=== PATIENT | male | born 1985 | race African-American/Black ===

== ENCOUNTER 2018-07-06 09:28 | Emergency (ER) | payer BC ==
[2018-07-06] MEDS ORDERED: KETOROLAC TROMETHAMINE INJ/PF 30 MG/1 ML SDV IV ONE (09:49)
[2018-07-06] MEDS ORDERED: ONDANSETRON HCL INJ/PF 4 MG/2 ML SDV IV ONE (09:49)
[2018-07-06] MEDS ORDERED: NORMAL SALINE 1000 ML 1,000 ML IV ONE ×2 (09:49→10:47)
--- NOTE | 2018-07-06 09:49 | ER Document Report ---
ED Medical Screen (RME) - General Chief Complaint: Back Pain Stated Complaint: URINARY ISSUE Time Seen by Provider: 07/06/18 09:44 Primary Care Provider: ELSY CHEW PA-C [Primary Care Provider] - Follow up as needed Notes: Patient is a 32-year-old male with history of kidney stones that presents to the emergency department for chief complaint of flank pain and back pain and painful urination. Patient states that he was seen by his primary care, diagnosed with a UTI, had outpatient testing the stated that he had a kidney stone, he states he had an ultrasound done, he has had fever, was started on Cipro, Flomax, and Toradol, he states the pain is not any better so he decided come to the emergency department. He reports that he was able to pass his previous stones. ROS: Other than noted above, the 12 point review of systems was reviewed with the patient and were negative, all pertinent findings are included in the HPI. PHYSICAL EXAMINATION: Vital signs reviewed. GENERAL: Well-appearing, well-nourished and in no acute distress. HEAD: Atraumatic, normocephalic. EYES: Pupils equal round extraocular movements intact, conjunctiva are normal. ENT: Nares patent NECK: Normal range of motion CV: Heart regular rate and rhythm LUNGS: No respiratory distress Musculoskeletal: Normal range of motion NEUROLOGICAL: Normal speech PSYCH: Normal mood, normal affect. MDM: Patient seen and examined for rapid initial assessment. Vital signs reviewed. A comprehensive ED assessment and evaluation of the patient, analysis of test results and completion of the medical decision making process will be conducted by additional ED providers. *Note is created using voice recognition software and may contain spelling, syntax or grammatical errors. TRAVEL OUTSIDE OF THE [place] IN LAST 30 DAYS: No - Related Data Allergies/Adverse Reactions: No Known Allergies Allergy (Unverified 07/06/18 09:35) Past Medical History - Social History Chew tobacco use (# tins/day): No Frequency of alcohol use: None Drug Abuse: None Renal/ Medical History: Denies: Hx Peritoneal Dialysis Physical Exam - Vital signs Vitals: Temp Pulse Resp BP Pulse Ox 98.5 F 95 18 119/64 95 07/06/18 09:35 07/06/18 09:35 07/06/18 09:35 07/06/18 09:35 07/06/18 09:35 Course - Vital Signs Vital signs: Temp Pulse Resp BP Pulse Ox 98.5 F 95 18 119/64 95 07/06/18 09:35 07/06/18 09:35 07/06/18 09:35 07/06/18 09:35 07/06/18 09:35 Doctor's Discharge - Discharge Referrals: ELSY CHEW PA-C [Primary Care Provider] - Follow up as needed
[2018-07-06] MEDS ORDERED: MORPHINE SULFATE 10 MG/ML INJ IV ONE (10:30)
--- NOTE | 2018-07-06 10:31 | ER Document Report ---
ED GI/ - General Chief Complaint: Back Pain Stated Complaint: URINARY ISSUE Time Seen by Provider: 07/06/18 09:44 Primary Care Provider: [facility] [Provider Group] - Follow up as needed [facility] [Provider Group] - Follow up in 3-5 days HENRY RAJPUT MD [COMMUNITY BASED STAFF] - Follow up in 3-5 days Mode of Arrival: Ambulatory Information source: Patient Notes: Patient presents with a 4-day history of intermittent fevers low back pain and suprapubic tenderness. Patient states that he was seen in urgent care 2 days ago and diagnosed with a UTI. Patient reports having an outpatient ultrasound to evaluate for possible kidney stone. Patient states that when he advised him that he was not any better the encouraged him to come here for recheck. Patient does have a previous history of kidney stones and hypertension. Patient has been taking Cipro and reports having had 6 doses so far. Patient is also taking Flomax and Toradol without improvement of his symptoms. TRAVEL OUTSIDE OF THE [place] IN LAST 30 DAYS: No - HPI Patient complains to provider of: Abdominal pain, Dysuria, Other - Low back pain. No: Vomiting Onset: Other - 4 days Timing/Duration: Worse Quality of pain: Achy, Sharp Pain Level: 4 Location: Low back, Suprapubic Sexual history: Active Associated symptoms: Fever. denies: Diarrhea, Nausea, Urinary hesitancy, Urinary urgency, Vomiting Exacerbated by: Denies Relieved by: Denies Similar symptoms previously: Yes Recently seen / treated by doctor: Yes - Related Data Allergies/Adverse Reactions: No Known Allergies Allergy (Verified 07/06/18 14:08) Past Medical History - General Information source: Patient - Social History Smoking Status: Never Smoker Chew tobacco use (# tins/day): No Frequency of alcohol use: None Drug Abuse: None Occupation: tire repair Lives with: Family Family History: Reviewed & Not Pertinent Patient has suicidal ideation: No Patient has homicidal ideation: No - Past Medical History Cardiac Medical History: Reports: Hx Hypertension Renal/ Medical History: Reports: Hx Kidney Stones. Denies: Hx Peritoneal Dialysis Past Surgical History: Reports: Hx Genitourinary Surgery - vasectomy Review of Systems - Review of Systems Constitutional: Fever, Recent illness - Recent treatment for UTI EENT: No symptoms reported Cardiovascular: No symptoms reported Respiratory: No symptoms reported. denies: Cough, Short of breath Gastrointestinal: Abdominal pain, Nausea. denies: Vomiting Genitourinary: Dysuria. denies: Flank pain Male Genitourinary: No symptoms reported Musculoskeletal: Back pain Skin: No symptoms reported Hematologic/Lymphatic: No symptoms reported Neurological/Psychological: No symptoms reported Physical Exam - Vital signs Vitals: Temp Pulse Resp BP Pulse Ox 98.5 F 95 18 119/64 95 07/06/18 09:35 07/06/18 09:35 07/06/18 09:35 07/06/18 09:35 07/06/18 09:35 - General General appearance: Appears well, Alert In distress: None - HEENT Head: Normocephalic, Atraumatic Eyes: Normal Conjunctiva: Normal Nasal: Normal Mouth/Lips: Normal Mucous membranes: Normal Neck: Normal, Supple. No: Lymphadenopathy - Respiratory Respiratory status: No respiratory distress Chest status: Nontender Breath sounds: Normal. No: Rales, Rhonchi, Stridor, Wheezing Chest palpation: Normal - Cardiovascular Rhythm: Regular Heart sounds: S1 appreciated, S2 appreciated Murmur: No - Abdominal Inspection: Normal Distension: No distension Bowel sounds: Normal Tenderness: Tender - suprapubic Organomegaly: No organomegaly - Rectal Prostate: Tender Notes: PCT Radha as standby - Back Back: Tender - Lower lumbar paraspinal tenderness. No: CVA tenderness - Extremities General upper extremity: Normal inspection, Nontender, Normal ROM General lower extremity: Normal inspection, Nontender, Normal ROM - Neurological Neuro grossly intact: Yes Cognition: Normal Rima Coma Scale Eye Opening: Spontaneous Rima Coma Scale Verbal: Oriented Breaks Coma Scale Motor: Obeys Commands Breaks Coma Scale Total: 15 - Psychological Associated symptoms: Normal affect, Normal mood - Skin Skin Temperature: Warm Skin Moisture: Dry Skin Color: Normal Course - Re-evaluation Re-evalutation: 07/06/18 11:[address] Mcallister regarding patient presentation, agrees with plan to treat for uti and prostatitis with doxycycline. Recommends adding on Flagyl to cover for STDs as well. Patient denies any penile drainage or discharge. Patient without any fever, no concern for sepsis at this time. Good return precautions discussed. Patient advised of abnormal renal function and need to have this test repeated. Patient also encouraged to follow-up with his urologist that he had seen previously in [place]. 07/06/18 11:40 - Vital Signs Vital signs: Temp Pulse Resp BP Pulse Ox 98.3 F 90 18 101/52 L 96 07/06/18 12:47 07/06/18 12:47 07/06/18 12:47 07/06/18 12:47 07/06/18 12:47 - Laboratory Result Diagrams: 07/06/18 10:05 07/06/18 10:05 Laboratory results interpreted by me: 07/06/18 07/06/18 07/06/18 10:05 10:05 10:05 WBC 12.2 H Hgb 13.3 L MCV 78 L Seg Neuts % (Manual) 88 H Lymphocytes % (Manual) 6 L Abs Neuts (Manual) 10.7 H Chloride 94 L BUN 22 H Creatinine 1.44 H Est GFR (Non-Af Amer) 56 L Glucose 113 H Direct Bilirubin 0.5 H Total Protein 8.3 H Urine Protein 30 H Urine Urobilinogen 2.0 H Ur Leukocyte Esterase LARGE H Urine Ascorbic Acid 40 H Labs- Entire Visit 07/06/18 07/06/18 07/06/18 10:05 10:05 10:05 WBC 12.2 H RBC 4.94 Hgb 13.3 L Hct 38.7 MCV 78 L MCH 27.0 MCHC 34.5 RDW 11.6 Plt Count 250 Total Counted 100 Seg Neutrophils % Not Reportable Seg Neuts % (Manual) 88 H Lymphocytes % Not Reportable Lymphocytes % (Manual) 6 L Monocytes % Not Reportable Monocytes % (Manual) 6 Eosinophils % Not Reportable Eosinophils % (Manual) 0 Basophils % Not Reportable Basophils % (Manual) 0 Absolute Neutrophils Not Reportable Abs Neuts (Manual) 10.7 H Absolute Lymphocytes Not Reportable Abs Lymphs (Manual) 0.7 Absolute Monocytes Not Reportable Abs Monocytes (Manual) 0.7 Absolute Eosinophils Not Reportable Absolute Eos (Manual) 0.0 Absolute Basophils Not Reportable Abs Basophils (Manual) 0.0 Platelet Comment ADEQUATE Hypochromasia SLIGHT Microcytosis SLIGHT Sodium 137.6 Potassium 3.9 Chloride 94 L Carbon Dioxide 30 Anion Gap 14 BUN 22 H Creatinine 1.44 H Est GFR ( Amer) > 60 Est GFR (Non-Af Amer) 56 L Glucose 113 H Calcium 9.8 Total Bilirubin 1.0 Direct Bilirubin 0.5 H Neonat Total Bilirubin Not Reportable Neonat Direct Bilirubin Not Reportable Neonat Indirect Bili Not Reportable AST 37 ALT 48 Alkaline Phosphatase 101 Total Protein 8.3 H Albumin 4.3 Urine Color ABRIL Urine Appearance CLOUDY Urine pH 5.0 Ur Specific Ida 1.025 Urine Protein 30 H Urine Glucose (UA) NEGATIVE Urine Ketones NEGATIVE Urine Blood NEGATIVE Urine Nitrite NEGATIVE Urine Bilirubin NEGATIVE Urine Urobilinogen 2.0 H Ur Leukocyte Esterase LARGE H Urine WBC (Auto) >182 Urine RBC (Auto) 17 U Hyaline Cast (Auto) 4 Urine WBC Clumps FEW Urine Mucus (Auto) RARE Urine Ascorbic Acid 40 H - Diagnostic Test Radiology reviewed: Reports reviewed Discharge - Discharge Clinical Impression: Renal function test abnormal UTI (urinary tract infection) Qualifiers: Urinary tract infection type: site unspecified Hematuria presence: with hematuria Qualified Code(s): N39.0 - Urinary tract infection, site not specified Prostatitis Qualifiers: Prostatitis type: acute Qualified Code(s): N41.0 - Acute prostatitis Back pain Qualifiers: Back pain location: low back pain Chronicity: acute Back pain laterality: bilateral Sciatica presence: without sciatica Qualified Code(s): M54.5 - Low back pain Condition: Stable Disposition: HOME, SELF-CARE Instructions: Doxycycline ([facility]), Low Back Pain ([facility]), Metronidazole ([facility]), Prostatitis ([facility]), Rocephin ([facility]), Urinary Tract Infection ([facility]) Additional Instructions: Return immediately for any new or worsening symptoms Followup with your primary care provider, call tomorrow to make a followup appointment Your renal function test was abnormal today. It is important that you follow-up with your primary doctor to have this test repeated this week Cultures are pending, we will call if you need any different treatment Follow-up with urology for further evaluation, call today for an appointment stop taking the toradol Prescriptions: Doxycycline Hyclate 100 mg PO BID #28 capsule Hydrocodone/Acetaminophen [[employer] 5-325 mg Tablet] 1 tab PO Q6 PRN #10 tablet PRN Reason: Forms: Return to Work Referrals: [facility] [Provider Group] - Follow up as needed [facility] [Provider Group] - Follow up in 3-5 days HENRY RAJPUT MD [COMMUNITY BASED STAFF] - Follow up in 3-5 days
[2018-07-06 10:34] LABS: HEMATOCRIT 38.7 % (37.9-51.0); HEMOGLOBIN 13.3 g/dL (13.5-17.0); MEAN CORPUSCULAR HGB CONC 34.5 g/dL (32.0-36.0); MEAN CORPUSCULAR VOLUME 78 fl (80-97); PLATELET COUNT 250 10^3/uL (150-450); RED BLOOD COUNT 4.94 10^6/uL (4.35-5.55); RED CELL DISTRIBUTION WIDTH 11.6 % (11.5-14.0); WHITE BLOOD COUNT 12.2 10^3/uL (4.0-10.5)
[2018-07-06 10:36] LABS: APPEARANCE,URINE CLOUDY; BILIRUBIN,URINE NEGATIVE (NEGATIVE); COLOR,URINE AMBER; GLUCOSE, URINE NEGATIVE (NEGATIVE); KETONES,URINE NEGATIVE (NEGATIVE); LEUKOCYTE ESTERASE,URINE LARGE (NEGATIVE); NITRITE,URINE NEGATIVE (NEGATIVE); PROTEIN,URINE 30 mg/dL (NEGATIVE); URINE SPECIFIC GRAVITY 1.025
[2018-07-06] MEDS ORDERED: CEFTRIAXONE 1 GM/D5W RTU 1 GM/50 ML RTUPB IV ONE (10:47)
[2018-07-06 10:53] LABS: ALANINE AMINOTRANSFERASE 48 U/L (21-72); ALBUMIN 4.3 g/dL (3.5-5.0); ALKALINE PHOSPHATASE 101 U/L (38-126); ANION GAP 14 (5-19); ASPARTATE AMINO TRANSFERASE 37 U/L (17-59); BILIRUBIN,DIRECT 0.5 mg/dL (0.0-0.4); BLOOD UREA NITROGEN 22 mg/dL (7-20); CALCIUM 9.8 mg/dL (8.4-10.2); CARBON DIOXIDE 30 mmol/L (22-30); CHLORIDE 94 mmol/L (98-107); GLUCOSE 113 mg/dL (75-110); POTASSIUM 3.9 mmol/L (3.6-5.0); SODIUM 137.6 mmol/L (137-145); TOTAL PROTEIN 8.3 g/dL (6.3-8.2)
--- NOTE | 2018-07-06 10:53 | RADIOLOGY REPORT (SQ) ---
EXAM DESCRIPTION: CT ABD/PELVIS NO ORAL OR IV COMPLETED DATE/TIME: 07/06/2018 10:41 am REASON FOR STUDY: flank pain, left COMPARISON: None. TECHNIQUE: CT scan of the abdomen and pelvis performed without intravenous or oral contrast. Images reviewed with lung, soft tissue, and bone windows. Reconstructed coronal and sagittal MPR images revi ewed. All images stored on PACS. All CT scanners at this facility use dose modulation, iterative reconstruction, and/or weight based d osing when appropriate to reduce radiation dose to as low as reasonably achievable (ALARA). [facility]: Dose Right [facility]: CareDose [facility]: Dose Right [facility]: Teradose 4D [facility]: Smart [employer] RADIATION DOSE: CT Rad equipment meets quality standard of care and radiation dose reduction techniq ues were employed. CTDIvol: 10.5 mGy. DLP: 633 mGy-cm.mGy. LIMITATIONS: None. FINDINGS: LOWER CHEST: No significant findings. No nodules or infiltrates. NON-CONTRASTED LIVER, SPLEEN, ADRENALS: Evaluation limited by lack of IV contrast. No identified sign ificant masses. PANCREAS: No masses. No peripancreatic inflammatory changes. GALLBLADDER: No identified stones by CT criteria. No inflammatory changes to suggest cholecystitis. RIGHT KIDNEY AND URETER: No suspicious masses. Assessment limited by lack of IV contrast. Tiny nono bstructive calculi. No hydronephrosis or hydroureter. LEFT KIDNEY AND URETER: No suspicious masses. Assessment limited by lack of IV contrast. Tiny nonob structive calculi. No hydronephrosis or hydroureter. AORTA AND RETROPERITONEUM: No aneurysm. No retroperitoneal masses or adenopathy. BOWEL AND PERITONEAL CAVITY: No obvious masses or inflammatory changes. No free fluid. APPENDIX: Normal. PELVIS, BLADDER, AND ABDOMINAL WALL:No abnormal masses. No free fluid. Bladder normal. BONES: No significant findings. OTHER: No other significant finding. IMPRESSION: Nonobstructive bilateral nephrolithiasis without evidence of lower urinary tract calculu s or hydronephrosis. No acute findings to explain flank pain. Normal appendix. COMMENT: Quality ID # [id number]: Final reports with documentation of one or more dose reduction techniques (e.g., Automated exposure control, adjustment of the mA and/or kV according to patient size, use of iterative reconstruction technique) TECHNICAL DOCUMENTATION: JOB ID: [id number]- All Rights Reserved Reading location - IP/workstation name: [email or web address]
[2018-07-06 11:07] LABS: ABSOLUTE LYMPHOCYTES# (MANUAL) 0.7 10^3/uL (0.5-4.7); ABSOLUTE MONOCYTES # (MANUAL) 0.7 10^3/uL (0.1-1.4); ABSOLUTE NEUTROPHILS# (MANUAL) 10.7 10^3/uL (1.7-8.2); BASOPHILS % (MANUAL) 0 % (0-2); EOSINOPHILS % (MANUAL) 0 % (0-6); LYMPHOCYTES % (MANUAL) 6 % (13-45); MONOCYTES % (MANUAL) 6 % (3-13); SEGMENTED NEUTROPHILS % (MAN) 88 % (42-78); TOTAL CELLS COUNTED 100
[2018-07-06 11:08] LABS: HYPOCHROMASIA SLIGHT; PLATELET COMMENT ADEQUATE
[2018-07-06] MEDS ORDERED: DOXYCYCLINE HYCLATE 100 MG TABLET PO ONE (11:13)
[2018-07-06] MEDS ORDERED: METRONIDAZOLE 500 MG TABLET PO ONE (11:13)
[2018-07-06 12:47] VITALS: BP 101/52
== END 2018-07-06 12:48 | disposition home or self-care (01) ==
LOC: ER 09:28
DX: N41.0 Acute prostatitis (principal); N39.0 Urinary tract infection, site not specified; R94.4 Abnormal results of kidney function studies; M54.5 Low back pain; I10 Essential (primary) hypertension; R50.9 Fever, unspecified; R11.0 Nausea; R10.30 Lower abdominal pain, unspecified
CPT/HCPCS: 99284; 96361; 96374; 96375; 36415; 87040; 87086; 85025; 87077; 87088; 80053; 81001; 87186; 74176; J1885; J2270; J2405; J7030; J0696

== ENCOUNTER 2018-07-06 14:02 | Inpatient (IN) | payer BC ==
--- NOTE | 2018-07-06 14:37 | ER Document Report ---
ED General <ADENIKE MONIQUE - Last Filed: 07/06/18 17:05> - General Mode of Arrival: Ambulatory Information source: Patient TRAVEL OUTSIDE OF THE [place] IN LAST 30 DAYS: No - HPI Onset: Other - 4 days Onset/Duration: Worse Quality of pain: Achy Pain Level: 4 Associated symptoms: Fever, Nausea, Vomiting, Sweating. denies: Chest pain, Nonproductive cough, Diarrhea Exacerbated by: Denies Relieved by: Denies Similar symptoms previously: Yes Recently seen / treated by doctor: Yes <NEHA SANTIAGO - Last Filed: 07/06/18 19:47> - General Chief Complaint: Nausea/Vomiting Stated Complaint: VOMITING,SHAKING Time Seen by Provider: 07/06/18 14:15 Notes: Patient was discharged earlier this afternoon after being treated for a UTI. Patient reports that he had been treated on an outpatient basis 2 days ago with Cipro for UTI and had an outpatient ultrasound to evaluate for possible kidney stones. Patient was given Rocephin earlier today and a prescription for doxycycline. Patient states that about an hour after he was discharged he started to have nausea vomiting with fever and shaking. Patient denies any concerns about HIV or any history of IV drug use. Patient does report a history of kidney stone in the past although had a CT scan at his earlier visit today which did not show any ureteral stone or hydronephrosis. Patient did have bilateral small intrarenal stones. (NEHA SANTIAGO) - Related Data Allergies/Adverse Reactions: No Known Allergies Allergy (Verified 07/06/18 14:08) Past Medical History - General Information source: Patient - Social History Smoking Status: Never Smoker Frequency of alcohol use: None Drug Abuse: None Occupation: tire repair Lives with: Family Family History: Reviewed & Not Pertinent - Past Medical History Cardiac Medical History: Reports: Hx Hypertension Renal/ Medical History: Reports: Hx Kidney Stones. Denies: Hx Peritoneal Dialysis Past Surgical History: Reports: Hx Genitourinary Surgery - vasectomy <NEHA SANTIAGO - Last Filed: 07/06/18 19:47> Review of Systems - Review of Systems Constitutional: Fever, Recent illness - Easily treated for UTI EENT: No symptoms reported Cardiovascular: No symptoms reported. denies: Chest pain Respiratory: Cough - Just started when the nausea started Gastrointestinal: Abdominal pain - Suprapubic, Nausea, Vomiting Genitourinary: Dysuria, Pain - Suprapubic. denies: Flank pain Male Genitourinary: No symptoms reported. denies: Erectile dysfunction, Penile discharge Musculoskeletal: Back pain Skin: No symptoms reported Hematologic/Lymphatic: No symptoms reported Neurological/Psychological: Headaches <NEHA SANTIAGO - Last Filed: 07/06/18 19:47> Physical Exam - General General appearance: Appears well, Alert In distress: Mild - HEENT Head: Normocephalic, Atraumatic Conjunctiva: Injected. No: Purulent discharge Pupils: PERRL Nasal: Normal Mouth/Lips: Normal Mucous membranes: Normal Neck: Normal, Supple. No: Lymphadenopathy - Respiratory Respiratory status: No respiratory distress Chest status: Nontender Breath sounds: Normal. No: Rales, Rhonchi, Stridor, Wheezing Chest palpation: Normal - Cardiovascular Rhythm: Tachycardia Heart sounds: S1 appreciated, S2 appreciated Murmur: No - Abdominal Inspection: Normal Distension: No distension Bowel sounds: Normal Tenderness: Tender - suprapubic Organomegaly: No organomegaly - Back Back: Tender - Lower lumbar paraspinal tenderness. No: CVA tenderness, Vertebra tenderness - Extremities General upper extremity: Normal inspection, Normal ROM General lower extremity: Normal inspection, Normal ROM - Neurological Neuro grossly intact: Yes Cognition: Normal [place] Coma Scale Eye Opening: Spontaneous [place] Coma Scale Verbal: Oriented Rima Coma Scale Motor: Obeys Commands [place] Coma Scale Total: 15 - Psychological Associated symptoms: Normal affect, Normal mood - Skin Skin Temperature: Warm Skin Moisture: Dry Skin Color: Normal <NEHA SANTIAGO - Last Filed: 07/06/18 19:47> - Vital signs Vitals: Temp Pulse Resp BP Pulse Ox 103.2 F H 130 H 28 H 151/75 H 94 07/06/18 14:08 07/06/18 14:08 07/06/18 14:08 07/06/18 14:08 07/06/18 14:08 Course - Laboratory Result Diagrams: 07/06/18 14:58 07/06/18 16:11 <ADENIKE MONIQUE - Last Filed: 07/06/18 17:05> - Laboratory Result Diagrams: 07/06/18 14:58 07/06/18 16:11 - Diagnostic Test Radiology reviewed: Reports reviewed - Reviewed from patient's previous ER visit <NEHA SANTIAGO - Last Filed: 07/06/18 19:47> - Re-evaluation Re-evalutation: 07/06/18 17:05 Patient seen and evaluated by myself. He is mildly diaphoretic, tachycardic and febrile during my exam. Patient has no midline spinal tenderness or erythema over his back. He does have complaint of back pain and suprapubic pain as well as dysuria. These symptoms are consistent with his acute UTI. He received Rocephin earlier in the day. Patient has received a total of 3 L of IV fluids without improvement of his acute kidney injury. He will be admitted to the hospital for further management. He is meeting sepsis criteria cultures have been obtained. (ADENIKE MONIQUE) 07/06/18 14:[address] Adenike Monique regarding patient presentation. Discussed patient's initial presentation to the ER as well as current exam findings. Recommends given additional liter of IV fluids as well as Phenergan IV to help with nausea. Agrees with plan for septic evaluation. 07/06/18 16:57 Dr. Monique to bedside for evaluation. Recommends consultation with hospitalist for admission at this time. Does not recommend any change in antibiotic regimen at this time as patient had been given a dose of Rocephin IV, doxycycline as well as Flagyl at the previous ER visit. 07/06/18 17:44 Consulted with Kiana NOE regarding need for admission, recommends consultation with Dr. Ya. Call placed to Dr. Ya for admission. 07/06/18 17:54 Dr Bonner agrees to admit pt at this time 07/06/18 19:47 (NEHA SANTIAGO) - Vital Signs Vital signs: Temp Pulse Resp BP Pulse Ox 102.5 F H 130 H 17 118/66 97 07/06/18 15:30 07/06/18 14:08 07/06/18 19:01 07/06/18 19:01 07/06/18 19:01 - Laboratory Laboratory results interpreted by me: 07/06/18 07/06/18 07/06/18 14:44 14:58 16:11 Hgb 12.7 L Hct 37.1 L MCV 79 L Seg Neutrophils % 87.9 H Lymphocytes % 5.5 L Absolute Neutrophils 8.3 H Sodium 136.3 L BUN 23 H Creatinine 1.44 H Est GFR (Non-Af Amer) 56 L Glucose 116 H Direct Bilirubin 0.5 H Urine Protein 30 H Urine Blood SMALL H Ur Leukocyte Esterase LARGE H Urine Ascorbic Acid 40 H 07/06/18 07/06/18 07/06/18 14:44 14:58 16:11 Hgb 12.7 L Hct 37.1 L MCV 79 L Seg Neutrophils % 87.9 H Lymphocytes % 5.5 L Absolute Neutrophils 8.3 H Sodium 136.3 L BUN 23 H Creatinine 1.44 H Est GFR (Non-Af Amer) 56 L Glucose 116 H Direct Bilirubin 0.5 H Urine Protein 30 H Urine Blood SMALL H Ur Leukocyte Esterase LARGE H Urine Ascorbic Acid 40 H 07/06/18 19:47 Labs- Entire Visit 07/06/18 07/06/18 07/06/18 14:44 14:44 14:58 WBC 9.4 RBC 4.69 Hgb 12.7 L Hct 37.1 L MCV 79 L MCH 27.2 MCHC 34.3 RDW 11.6 Plt Count 232 Seg Neutrophils % 87.9 H Lymphocytes % 5.5 L Monocytes % 6.3 Eosinophils % 0.1 Basophils % 0.2 Absolute Neutrophils 8.3 H Absolute Lymphocytes 0.5 Absolute Monocytes 0.6 Absolute Eosinophils 0.0 Absolute Basophils 0.0 PT INR VBG pH VBG pCO2 VBG HCO3 VBG Base Excess Sodium Potassium Chloride Carbon Dioxide Anion Gap BUN Creatinine Est GFR ( Amer) Est GFR (Non-Af Amer) Glucose Lactic Acid Calcium Total Bilirubin Direct Bilirubin Neonat Total Bilirubin Neonat Direct Bilirubin Neonat Indirect Bili AST ALT Alkaline Phosphatase Total Protein Albumin Urine Color YELLOW Urine Appearance CLOUDY Urine pH 5.0 Ur Specific [place] 1.021 Urine Protein 30 H Urine Glucose (UA) NEGATIVE Urine Ketones NEGATIVE Urine Blood SMALL H Urine Nitrite NEGATIVE Urine Bilirubin NEGATIVE Urine Urobilinogen NEGATIVE Ur Leukocyte Esterase LARGE H Urine WBC (Auto) >182 Urine RBC (Auto) 17 Urine Bacteria (Auto) TRACE Urine WBC Clumps FEW U Non-Squamous Epis Auto 1 Urine Mucus (Auto) RARE Urine Ascorbic Acid 40 H Influenza A (Rapid) NEGATIVE Influenza B (Rapid) NEGATIVE 07/06/18 07/06/18 07/06/18 14:58 14:58 14:58 WBC RBC Hgb Hct MCV MCH MCHC RDW Plt Count Seg Neutrophils % Lymphocytes % Monocytes % Eosinophils % Basophils % Absolute Neutrophils Absolute Lymphocytes Absolute Monocytes Absolute Eosinophils Absolute Basophils PT 14.8 INR 1.10 VBG pH VBG pCO2 VBG HCO3 VBG Base Excess Sodium Cancelled Potassium Cancelled Chloride Cancelled Carbon Dioxide Cancelled Anion Gap Cancelled BUN Cancelled Creatinine Cancelled Est GFR ( Amer) Cancelled Est GFR (Non-Af Amer) Cancelled Glucose Cancelled Lactic Acid 1.6 Calcium Cancelled Total Bilirubin Cancelled Direct Bilirubin Cancelled Neonat Total Bilirubin Cancelled Neonat Direct Bilirubin Cancelled Neonat Indirect Bili Cancelled AST Cancelled ALT Cancelled Alkaline Phosphatase Cancelled Total Protein Cancelled Albumin Cancelled Urine Color Urine Appearance Urine pH Ur Specific [place] Urine Protein Urine Glucose (UA) Urine Ketones Urine Blood Urine Nitrite Urine Bilirubin Urine Urobilinogen Ur Leukocyte Esterase Urine WBC (Auto) Urine RBC (Auto) Urine Bacteria (Auto) Urine WBC Clumps U Non-Squamous Epis Auto Urine Mucus (Auto) Urine Ascorbic Acid Influenza A (Rapid) Influenza B (Rapid) 07/06/18 07/06/18 07/06/18 14:58 16:11 16:11 WBC RBC Hgb Hct MCV MCH MCHC RDW Plt Count Seg Neutrophils % Lymphocytes % Monocytes % Eosinophils % Basophils % Absolute Neutrophils Absolute Lymphocytes Absolute Monocytes Absolute Eosinophils Absolute Basophils PT INR VBG pH Cancelled 7.36 VBG pCO2 Cancelled 53.5 VBG HCO3 Cancelled 29.2 VBG Base Excess Cancelled 2.6 Sodium 136.3 L Potassium 4.0 Chloride 98 Carbon Dioxide 24 Anion Gap 14 BUN 23 H Creatinine 1.44 H Est GFR ( Amer) > 60 Est GFR (Non-Af Amer) 56 L Glucose 116 H Lactic Acid Calcium 9.0 Total Bilirubin 0.7 Direct Bilirubin 0.5 H Neonat Total Bilirubin Not Reportable Neonat Direct Bilirubin Not Reportable Neonat Indirect Bili Not Reportable AST 37 ALT 44 Alkaline Phosphatase 95 Total Protein 7.2 Albumin 3.7 Urine Color Urine Appearance Urine pH Ur Specific [place] Urine Protein Urine Glucose (UA) Urine Ketones Urine Blood Urine Nitrite Urine Bilirubin Urine Urobilinogen Ur Leukocyte Esterase Urine WBC (Auto) Urine RBC (Auto) Urine Bacteria (Auto) Urine WBC Clumps U Non-Squamous Epis Auto Urine Mucus (Auto) Urine Ascorbic Acid Influenza A (Rapid) Influenza B (Rapid) Reviewed from patient's previous ER visit (NEHA SANTIAGO) Discharge <ADENIKE MONIQUE Antwan - Last Filed: 07/06/18 17:05> - Discharge Admitting Provider: Hospitalist Unit Admitted: Medical Floor <NEHA SANTIAGO - Last Filed: 07/06/18 19:47> - Discharge Clinical Impression: Acute kidney injury, Complicated UTI (urinary tract infection) Sepsis Qualifiers: Sepsis type: sepsis due to unspecified organism Qualified Code(s): A41.9 - Sepsis, unspecified organism Back pain Qualifiers: Back pain location: low back pain Chronicity: acute Back pain laterality: bilateral Sciatica presence: without sciatica Qualified Code(s): M54.5 - Low back pain Condition: Fair Disposition: ADMITTED INPATIENT
[2018-07-06] MEDS ORDERED: RINGERS SOLUTION,LACTATED 1,000 ML IV ONE (14:46)
[2018-07-06] MEDS ORDERED: PROMETHAZINE HCL INJ 25 MG/1 ML VIAL IV ONE (14:50)
[2018-07-06] MEDS ORDERED: ACETAMINOPHEN 325 MG TABLET PO ONE (14:50)
[2018-07-06 15:11] LABS: APPEARANCE,URINE CLOUDY; BILIRUBIN,URINE NEGATIVE (NEGATIVE); COLOR,URINE YELLOW; GLUCOSE, URINE NEGATIVE (NEGATIVE); KETONES,URINE NEGATIVE (NEGATIVE); LEUKOCYTE ESTERASE,URINE LARGE (NEGATIVE); NITRITE,URINE NEGATIVE (NEGATIVE); PROTEIN,URINE 30 mg/dL (NEGATIVE); URINE SPECIFIC GRAVITY 1.021; UROBILINOGEN,URINE NEGATIVE mg/dL (<2.0)
[2018-07-06 15:14] LABS: A TYPE INFLUENZA AG NEGATIVE (NEGATIVE); B INFLUENZA AG NEGATIVE (NEGATIVE)
[2018-07-06 15:46] LABS: ABSOLUTE LYMPHOCYTES (AUTO) 0.5 10^3/uL (0.5-4.7); ABSOLUTE MONOCYTES (AUTO) 0.6 10^3/uL (0.1-1.4); ABSOLUTE NEUT (AUTO) 8.3 10^3/uL (1.7-8.2); BASOPHILS % (AUTO) 0.2 % (0-2); EOSINOPHILS % (AUTO) 0.1 % (0-6); HEMATOCRIT 37.1 % (37.9-51.0); HEMOGLOBIN 12.7 g/dL (13.5-17.0); LYMPHOCYTES % (AUTO) 5.5 % (13-45); MEAN CORPUSCULAR HEMOGLOBIN 27.2 pg (27.0-33.4); MEAN CORPUSCULAR HGB CONC 34.3 g/dL (32.0-36.0); MEAN CORPUSCULAR VOLUME 79 fl (80-97); MONOCYTES % (AUTO) 6.3 % (3-13); PLATELET COUNT 232 10^3/uL (150-450); RED BLOOD COUNT 4.69 10^6/uL (4.35-5.55); RED CELL DISTRIBUTION WIDTH 11.6 % (11.5-14.0); SEGMENTED NEUTROPHILS % (AUTO) 87.9 % (42-78); TOTAL CELLS COUNTED % (AUTO) 100 %; WHITE BLOOD COUNT 9.4 10^3/uL (4.0-10.5)
[2018-07-06 15:47] LABS: PROTHROMBIN TIME 14.8 SEC (11.4-15.4)
--- NOTE | 2018-07-06 15:57 | RADIOLOGY REPORT (SQ) ---
EXAM DESCRIPTION: CHEST 2 VIEWS COMPLETED DATE/TIME: 07/06/2018 3:51 pm REASON FOR STUDY: cough COMPARISON: None. EXAM PARAMETERS: NUMBER OF VIEWS: two views TECHNIQUE: Digital Frontal and Lateral radiographic views of the chest acquired. RADIATION DOSE: NA LIMITATIONS: none FINDINGS: LUNGS AND PLEURA: No opacities, masses or pneumothorax. No pleural effusion. MEDIASTINUM AND HILAR STRUCTURES: No masses or contour abnormalities. HEART AND VASCULAR STRUCTURES: Heart normal size. No evidence for failure. BONES: No acute findings. HARDWARE: None in the chest. OTHER: No other significant finding. IMPRESSION: NO ACUTE RADIOGRAPHIC FINDING IN THE CHEST. TECHNICAL DOCUMENTATION: JOB ID: [id number] [employer]- All Rights Reserved Reading location - IP/workstation name: [email or web address]
[2018-07-06 16:29] LABS: VENOUS BLOOD BASE EXCESS 2.6 mmol/L; VENOUS BLOOD HCO3 29.2 mmol/L (20-32); VENOUS BLOOD PCO2 53.5 mmHg (35-63); VENOUS BLOOD PH 7.36 (7.30-7.42)
[2018-07-06 16:50] LABS: ALANINE AMINOTRANSFERASE 44 U/L (21-72); ALBUMIN 3.7 g/dL (3.5-5.0); ALKALINE PHOSPHATASE 95 U/L (38-126); ANION GAP 14 (5-19); ASPARTATE AMINO TRANSFERASE 37 U/L (17-59); BILIRUBIN,DIRECT 0.5 mg/dL (0.0-0.4); BILIRUBIN,TOTAL 0.7 mg/dL (0.2-1.3); BLOOD UREA NITROGEN 23 mg/dL (7-20); CARBON DIOXIDE 24 mmol/L (22-30); CHLORIDE 98 mmol/L (98-107); GLUCOSE 116 mg/dL (75-110); SODIUM 136.3 mmol/L (137-145); TOTAL PROTEIN 7.2 g/dL (6.3-8.2)
[2018-07-06] MEDS ORDERED: KETOROLAC TROMETHAMINE INJ/PF 30 MG/1 ML SDV IV ONE (17:05)
[2018-07-06] MEDS ORDERED: MORPHINE SULFATE 10 MG/ML INJ IV ONE (17:22)
--- NOTE | 2018-07-06 18:13 | PDOC H&P ---
History of Present Illness Admission Date/PCP: HENRY RAJPUT MD History of Present Illness: GILBERT WESTBROOK is a 32 year old black male patient with no significant medical history except for hypertension presented with chief complaint of fever and back pain. Initially the patient visited his primary care physician office where he was diagnosed with UTI and he was given Cipro and pain medication to no avail. This is his second visit to [facility] ER. She did report this dysuria and intermittent fever. His T-max is 103.2. His blood work shows mild leukocytosis and acute kidney injury with creatinine of 1.4. CT scan of the abdomen and pelvis without contrast reported as nonobstructive bilateral nephrolithiasis without evidence of lower urinary tract calculus or hydronephrosis. His urinalysis is compatible with UTI evidenced by large leukocyte esterase and pyuria. Past Medical History Cardiac Medical History: Reports: Hypertension Social History Smoking Status: Never Smoker Frequency of Alcohol Use: None Hx Recreational Drug Use: No Hx Prescription Drug Abuse: No - Advance Directive Resuscitation Status: Full Code Family History Parental Family History Reviewed: Yes Children Family History Reviewed: Yes Sibling(s) Family History Reviewed.: Yes Medication/Allergy Home Medications: Ciprofloxacin HCl [Cipro] 500 mg PO BID 07/06/18 Doxycycline Hyclate 100 mg PO BID #28 capsule 07/06/18 Hydrocodone/Acetaminophen [[place] 5-325 mg Tablet] 1 tab PO Q6 PRN #10 tablet 07/06/18 Ketorolac Tromethamine [Toradol 10 mg Tablet] 10 mg PO Q6HP PRN 07/06/18 Tamsulosin HCl [Flomax 0.4 mg Cap.sr] 0.4 mg PO Q6H 07/06/18 Allergies/Adverse Reactions: No Known Allergies Allergy (Verified 07/06/18 14:08) Review of Systems Constitutional: ABSENT: chills, fever(s), headache(s), weight gain, weight loss Eyes: ABSENT: visual disturbances Ears: ABSENT: hearing changes Cardiovascular: ABSENT: chest pain, dyspnea on exertion, edema, orthropnea, palpitations Respiratory: ABSENT: cough, hemoptysis Gastrointestinal: ABSENT: abdominal pain, constipation, diarrhea, hematemesis, hematochezia, nausea, vomiting Genitourinary: PRESENT: dysuria Musculoskeletal: PRESENT: back pain Integumentary: ABSENT: rash, wounds Neurological: ABSENT: abnormal gait, abnormal speech, confusion, dizziness, focal weakness, syncope Psychiatric: ABSENT: anxiety, depression, homidical ideation, suicidal ideation Endocrine: ABSENT: cold intolerance, heat intolerance, polydipsia, polyuria Hematologic/Lymphatic: ABSENT: easy bleeding, easy bruising Physical Exam Vital Signs: Temp Pulse Resp BP Pulse Ox 103.2 F H 130 H 22 H 106/64 96 07/06/18 14:08 07/06/18 14:08 07/06/18 16:31 07/06/18 16:31 07/06/18 16:31 Intake & Output 07/05/18 07/06/18 07/07/18 06:59 06:59 06:59 Intake Total 2000 Output Total 120 Balance 1880 Weight 103 kg General appearance: PRESENT: no acute distress, well-developed, well-nourished Head exam: PRESENT: atraumatic, normocephalic Eye exam: PRESENT: conjunctiva pink, EOMI, PERRLA. ABSENT: scleral icterus Ear exam: PRESENT: normal external ear exam Mouth exam: PRESENT: moist, tongue midline Neck exam: ABSENT: carotid bruit, JVD, lymphadenopathy, thyromegaly Respiratory exam: PRESENT: clear to auscultation brenda. ABSENT: rales, rhonchi, wheezes Cardiovascular exam: PRESENT: RRR. ABSENT: diastolic murmur, rubs, systolic murmur Pulses: PRESENT: normal dorsalis pedis pul Vascular exam: PRESENT: normal capillary refill GI/Abdominal exam: PRESENT: normal bowel sounds, soft. ABSENT: distended, guarding, mass, organolmegaly, rebound, tenderness Rectal exam: PRESENT: deferred Gentrourinary exam: PRESENT: other - Suprapubic pain and tenderness Extremities exam: PRESENT: full ROM. ABSENT: calf tenderness, clubbing, pedal edema Neurological exam: PRESENT: alert, awake, oriented to person, oriented to place, oriented to time, oriented to situation, CN II-XII grossly intact. ABSENT: motor sensory deficit Psychiatric exam: PRESENT: appropriate affect, normal mood. ABSENT: homicidal ideation, suicidal ideation Skin exam: PRESENT: dry, intact, warm. ABSENT: cyanosis, rash Results Laboratory Results: 07/06/18 14:58 07/06/18 16:11 07/06/18 07/06/18 07/06/18 14:44 14:58 14:58 WBC 9.4 RBC 4.69 Hgb 12.7 L Hct 37.1 L MCV 79 L MCH 27.2 MCHC 34.3 RDW 11.6 Plt Count 232 Seg Neutrophils % 87.9 H Lymphocytes % 5.5 L Monocytes % 6.3 Eosinophils % 0.1 Basophils % 0.2 Absolute Neutrophils 8.3 H Absolute Lymphocytes 0.5 Absolute Monocytes 0.6 Absolute Eosinophils 0.0 Absolute Basophils 0.0 VBG pH VBG pCO2 VBG HCO3 VBG Base Excess Sodium Cancelled Potassium Cancelled Chloride Cancelled Carbon Dioxide Cancelled Anion Gap Cancelled BUN Cancelled Creatinine Cancelled Est GFR ( Amer) Cancelled Est GFR (Non-Af Amer) Cancelled Glucose Cancelled Lactic Acid Calcium Cancelled Total Bilirubin Cancelled AST Cancelled ALT Cancelled Alkaline Phosphatase Cancelled Total Protein Cancelled Albumin Cancelled Urine Color YELLOW Urine Appearance CLOUDY Urine pH 5.0 Ur Specific [place] 1.021 Urine Protein 30 H Urine Glucose (UA) NEGATIVE Urine Ketones NEGATIVE Urine Blood SMALL H Urine Nitrite NEGATIVE Ur Leukocyte Esterase LARGE H Urine WBC (Auto) >182 Urine RBC (Auto) 17 07/06/18 07/06/18 07/06/18 14:58 14:58 16:11 WBC RBC Hgb Hct MCV MCH MCHC RDW Plt Count Seg Neutrophils % Lymphocytes % Monocytes % Eosinophils % Basophils % Absolute Neutrophils Absolute Lymphocytes Absolute Monocytes Absolute Eosinophils Absolute Basophils VBG pH Cancelled VBG pCO2 Cancelled VBG HCO3 Cancelled VBG Base Excess Cancelled Sodium 136.3 L Potassium 4.0 Chloride 98 Carbon Dioxide 24 Anion Gap 14 BUN 23 H Creatinine 1.44 H Est GFR ( Amer) > 60 Est GFR (Non-Af Amer) 56 L Glucose 116 H Lactic Acid 1.6 Calcium 9.0 Total Bilirubin 0.7 AST 37 ALT 44 Alkaline Phosphatase 95 Total Protein 7.2 Albumin 3.7 Urine Color Urine Appearance Urine pH Ur Specific [place] Urine Protein Urine Glucose (UA) Urine Ketones Urine Blood Urine Nitrite Ur Leukocyte Esterase Urine WBC (Auto) Urine RBC (Auto) 07/06/18 16:11 WBC RBC Hgb Hct MCV MCH MCHC RDW Plt Count Seg Neutrophils % Lymphocytes % Monocytes % Eosinophils % Basophils % Absolute Neutrophils Absolute Lymphocytes Absolute Monocytes Absolute Eosinophils Absolute Basophils VBG pH 7.36 VBG pCO2 53.5 VBG HCO3 29.2 VBG Base Excess 2.6 Sodium Potassium Chloride Carbon Dioxide Anion Gap BUN Creatinine Est GFR ( Amer) Est GFR (Non-Af Amer) Glucose Lactic Acid Calcium Total Bilirubin AST ALT Alkaline Phosphatase Total Protein Albumin Urine Color Urine Appearance Urine pH Ur Specific [place] Urine Protein Urine Glucose (UA) Urine Ketones Urine Blood Urine Nitrite Ur Leukocyte Esterase Urine WBC (Auto) Urine RBC (Auto) Impressions: Chest X-Ray 07/06/18 14:35 IMPRESSION: NO ACUTE RADIOGRAPHIC FINDING IN THE CHEST. Assessment and Plan - Diagnosis (1) Complicated UTI (urinary tract infection) Is this a current diagnosis for this admission?: Yes Plan: Failed outpatient antibiotic treatment. Patient has mild leukocytosis and fever. I will start him on cefepime (2) Sepsis Is this a current diagnosis for this admission?: Yes Plan: Urinary tract origin. Patient has leukocytosis, fever and hypotension. (3) Acute kidney injury Is this a current diagnosis for this admission?: Yes Plan: Probably due to dehydration. I will cautiously hydrate him. (4) Hypertension Qualifiers: Hypertension type: essential hypertension Qualified Code(s): I10 - Essential (primary) hypertension Is this a current diagnosis for this admission?: Yes Plan: Continue home medication. - Inpatient Certification Medical Necessity: Need Close Monitoring Due to Risk of Patient Decompensation, Need For IV Fluids, Need for IV Antibiotics Post Hospital Care: Other - Failed outpatient antibiotic treatment.
[2018-07-06] MEDS ORDERED: CEFEPIME 2 GM/D5W RTU 2 GM/50 ML RTUPB IV ONE (18:30)
[2018-07-06] MEDS: ENOXAPARIN SODIUM INJ 40 MG/0.4 ML DISP.SYRIN SUBCUT SCH (18:57)
[2018-07-06] MEDS ORDERED: ACETAMINOPHEN 325 MG TABLET ONE (20:51)
[2018-07-06] MEDS: NORMAL SALINE 1000 ML 1,000 ML IV PRN (21:01)
--- NOTE | 2018-07-06 21:27 | EKG REPORT ---
SEVERITY:- OTHERWISE NORMAL ECG - SINUS TACHYCARDIA BORDERLINE LEFT AXIS DEVIATION : Confirmed by: Jsutine Feng MD 06-Jul-2018 21:26:20
[2018-07-06] MEDS: OXYCODONE-ACETAMINOPHEN 5-325 MG TABLET PO PRN (22:38)
[2018-07-07] MEDS: NORMAL SALINE 1000 ML 1,000 ML IV PRN ×3 (03:58→20:02)
[2018-07-07] MEDS ORDERED: KETOROLAC TROMETHAMINE INJ/PF 30 MG/1 ML SDV ONE (04:26)
[2018-07-07] MEDS ORDERED: KETOROLAC TROMETHAMINE INJ/PF 30 MG/1 ML SDV IV PRN (04:28)
[2018-07-07] MEDS ORDERED: KETOROLAC TROMETHAMINE INJ/PF 30 MG/1 ML SDV IV ONE (04:40)
[2018-07-07] MEDS: OXYCODONE-ACETAMINOPHEN 5-325 MG TABLET PO PRN ×4 (04:43→20:00)
[2018-07-07] MEDS: CEFEPIME 2 GM/D5W RTU 2 GM/50 ML RTUPB IV SCH ×2 (05:16→17:44)
[2018-07-07 07:39] LABS: ABSOLUTE LYMPHOCYTES (AUTO) 1.1 10^3/uL (0.5-4.7); ABSOLUTE MONOCYTES (AUTO) 0.6 10^3/uL (0.1-1.4); ABSOLUTE NEUT (AUTO) 5.7 10^3/uL (1.7-8.2); BASOPHILS % (AUTO) 0.3 % (0-2); EOSINOPHILS % (AUTO) 0.3 % (0-6); HEMATOCRIT 33.5 % (37.9-51.0); HEMOGLOBIN 11.4 g/dL (13.5-17.0); MEAN CORPUSCULAR HEMOGLOBIN 27.1 pg (27.0-33.4); MEAN CORPUSCULAR VOLUME 80 fl (80-97); MONOCYTES % (AUTO) 8.4 % (3-13); PLATELET COUNT 232 10^3/uL (150-450); RED BLOOD COUNT 4.21 10^6/uL (4.35-5.55); RED CELL DISTRIBUTION WIDTH 11.9 % (11.5-14.0); TOTAL CELLS COUNTED % (AUTO) 100 %; WHITE BLOOD COUNT 7.5 10^3/uL (4.0-10.5)
[2018-07-07 07:58] LABS: ANION GAP 11 (5-19); BLOOD UREA NITROGEN 17 mg/dL (7-20); CALCIUM 8.5 mg/dL (8.4-10.2); CARBON DIOXIDE 25 mmol/L (22-30); CHLORIDE 99 mmol/L (98-107); GLUCOSE 114 mg/dL (75-110); POTASSIUM 3.9 mmol/L (3.6-5.0); SODIUM 134.6 mmol/L (137-145)
[2018-07-07] MEDS ORDERED: (PENDING PHARMACY ID) (Lisinopril/Hydrochlorothiazide [Lisinopril-Hctz 20-25 Mg Tab] 1 EAC PO SCH (10:00)
[2018-07-07] MEDS: ENOXAPARIN SODIUM INJ 40 MG/0.4 ML DISP.SYRIN SUBCUT SCH (10:15)
[2018-07-07] MEDS: HYDROCHLOROTHIAZIDE 25 MG TABLET PO SCH (10:17)
[2018-07-07] MEDS: TAMSULOSIN HCL 0.4 MG CAP.SR.24H PO SCH (10:17)
[2018-07-07] MEDS: LISINOPRIL 10 MG TABLET PO SCH (10:18)
--- NOTE | 2018-07-07 18:32 | PDOC PROGRESS REPORT ---
Addendum entered and electronically signed by RUBEN LEMONS NP-C 07/07/18 18:33: Provider Note Provider Note: Subjective: Patient was seen on morning rounds with family members present. He was found resting in bed comfortably on room air. He reports continued bilateral back/flank pain that worsens with sudden movements. Positive CVA tenderness on palpation. He also reports mild suprapubic discomfort and urinary urgency. He denies chest pain, palpitations, dyspnea, nausea, vomiting, diarrhea. He has no new questions or concerns. No concerns per nursing. Original Note: Subjective Progress Note for:: 07/07/18 Reason For Visit: SEPSIS,COMPLICATED UTI,FAILED OUTPATIENT ANTI Physical Exam Vital Signs: Temp Pulse Resp BP Pulse Ox 100.3 F 93 16 128/89 H 96 07/07/18 15:00 07/07/18 15:00 07/07/18 15:00 07/07/18 15:00 07/07/18 15:00 Intake & Output 07/06/18 07/07/18 07/08/18 06:59 06:59 06:59 Intake Total 3000 2250 Output Total 970 10 Balance 2030 2240 Weight 100.4 kg General appearance: PRESENT: no acute distress, well-developed, well-nourished Head exam: PRESENT: atraumatic, normocephalic Eye exam: PRESENT: conjunctiva pink, EOMI, PERRLA. ABSENT: scleral icterus Ear exam: PRESENT: normal external ear exam Mouth exam: PRESENT: moist, tongue midline Neck exam: ABSENT: carotid bruit, JVD, lymphadenopathy, thyromegaly Respiratory exam: PRESENT: clear to auscultation brenda. ABSENT: rales, rhonchi, wheezes Cardiovascular exam: PRESENT: RRR. ABSENT: diastolic murmur, rubs, systolic murmur Pulses: PRESENT: normal dorsalis pedis pul Vascular exam: PRESENT: normal capillary refill GI/Abdominal exam: PRESENT: normal bowel sounds, soft, tenderness - suprapubic; bilateral CVA. ABSENT: distended, guarding, mass, organolmegaly, rebound Rectal exam: PRESENT: deferred Extremities exam: PRESENT: full ROM. ABSENT: calf tenderness, clubbing, pedal edema Neurological exam: PRESENT: alert, awake, oriented to person, oriented to place, oriented to time, oriented to situation, CN II-XII grossly intact. ABSENT: motor sensory deficit Psychiatric exam: PRESENT: appropriate affect, normal mood. ABSENT: homicidal ideation, suicidal ideation Skin exam: PRESENT: dry, intact, warm. ABSENT: cyanosis, rash Results Laboratory Results: 07/07/18 06:20 07/07/18 06:20 07/07/18 07/07/18 06:20 06:20 WBC 7.5 RBC 4.21 L Hgb 11.4 L Hct 33.5 L MCV 80 MCH 27.1 MCHC 34.0 RDW 11.9 Plt Count 232 Seg Neutrophils % 76.0 Lymphocytes % 15.0 Monocytes % 8.4 Eosinophils % 0.3 Basophils % 0.3 Absolute Neutrophils 5.7 Absolute Lymphocytes 1.1 Absolute Monocytes 0.6 Absolute Eosinophils 0.0 Absolute Basophils 0.0 Sodium 134.6 L Potassium 3.9 Chloride 99 Carbon Dioxide 25 Anion Gap 11 BUN 17 Creatinine 1.19 Est GFR ( Amer) > 60 Est GFR (Non-Af Amer) > 60 Glucose 114 H Calcium 8.5 Impressions: Chest X-Ray 07/06/18 14:35 IMPRESSION: NO ACUTE RADIOGRAPHIC FINDING IN THE CHEST. Assessment and Plan - Diagnosis (1) Complicated UTI (urinary tract infection) Is this a current diagnosis for this admission?: Yes Plan: Failed outpatient antibiotic treatment (Cipro). Blood culture (1 bottle) Gram (+) cocci Urine culture Gram (+) cocci Patient continues to be afebrile; WBCs are normal. CT Abd/Pelvis (07/06/18) revealed tiny bilateral nonobstructing calculi; no other acute findings. Patient was admitted to the medical floor. Continue gentle IV fluids. Continue Cefepime; will adjust as cultures result. (2) Sepsis Qualifiers: Sepsis type: sepsis due to unspecified organism Qualified Code(s): A41.9 - Sepsis, unspecified organism Is this a current diagnosis for this admission?: Yes Plan: Patient presents with sepsis due to urinary tract infection, present on arrival as evidenced by Fever (1-3.2), tachycardia (HR 110), tachypnea (RR 28), and acut e kidney injury (CR 1.44) Patient received aggressive fluid resuscitation. Blood and urine cultures as above. Currently on IV cefepime; will adjust as cultures result. (3) Acute kidney injury Is this a current diagnosis for this admission?: Yes Plan: Resolved; secondary to UTI sepsis. Creatinine on admission 1.44; decreased to 1.19. Continue gentle IV fluid hydration. Encourage p.o. fluids. Monitor with daily chemistries. Avoid nephrotoxic medications as able. (4) Hypertension Qualifiers: Hypertension type: essential hypertension Qualified Code(s): I10 - Essential (primary) hypertension Is this a current diagnosis for this admission?: Yes Plan: Normotensive at present. Continue home dose lisinopril/HCTZ. - Time Time Spent with patient: 15-24 minutes Medications reviewed and adjusted accordingly: Yes Anticipated discharge: Home Within: within 48 hours - Inpatient Certification Based on my medical assessment, after consideration of the patient's c omorbidities, presenting symptoms, or acuity I expect that the services needed warrant INPATIENT care.: Yes I certify that my determination is in accordance with my understanding of Medicare's requirements for reasonable and necessary INPATIENT services [42 CFR 412.3e].: Yes Medical Necessity: Need For IV Fluids, Need for IV Antibiotics
[2018-07-07] MEDS ORDERED: VANCOMYCIN HCL 0 MG in DEXTROSE 5%-WATER 250 ML IV NR (21:30)
[2018-07-07] MEDS ORDERED: VANCOMYCIN HCL 1,500 MG in DEXTROSE 5%-WATER 250 ML IV ONE (22:00)
[2018-07-08] MEDS: OXYCODONE-ACETAMINOPHEN 5-325 MG TABLET PO PRN ×4 (00:21→18:08)
[2018-07-08] MEDS: ACETAMINOPHEN 325 MG TABLET PO PRN (04:36)
[2018-07-08] MEDS: NORMAL SALINE 1000 ML 1,000 ML IV PRN (04:38)
[2018-07-08] MEDS: CEFEPIME 2 GM/D5W RTU 2 GM/50 ML RTUPB IV SCH ×2 (05:32→17:56)
[2018-07-08 06:26] LABS: ABSOLUTE EOSINOPHILS # (AUTO) 0.1 10^3/uL (0.0-0.6); ABSOLUTE LYMPHOCYTES (AUTO) 1.5 10^3/uL (0.5-4.7); ABSOLUTE MONOCYTES (AUTO) 0.8 10^3/uL (0.1-1.4); BASOPHILS % (AUTO) 0.3 % (0-2); EOSINOPHILS % (AUTO) 1.3 % (0-6); HEMATOCRIT 33.8 % (37.9-51.0); HEMOGLOBIN 11.5 g/dL (13.5-17.0); LYMPHOCYTES % (AUTO) 19.6 % (13-45); MEAN CORPUSCULAR HEMOGLOBIN 26.9 pg (27.0-33.4); MEAN CORPUSCULAR HGB CONC 34.1 g/dL (32.0-36.0); MEAN CORPUSCULAR VOLUME 79 fl (80-97); MONOCYTES % (AUTO) 10.8 % (3-13); PLATELET COUNT 216 10^3/uL (150-450); RED BLOOD COUNT 4.27 10^6/uL (4.35-5.55); RED CELL DISTRIBUTION WIDTH 11.6 % (11.5-14.0); TOTAL CELLS COUNTED % (AUTO) 100 %; WHITE BLOOD COUNT 7.4 10^3/uL (4.0-10.5)
[2018-07-08 06:46] LABS: ANION GAP 6 (5-19); BLOOD UREA NITROGEN 9 mg/dL (7-20); CALCIUM 8.5 mg/dL (8.4-10.2); CARBON DIOXIDE 27 mmol/L (22-30); CHLORIDE 102 mmol/L (98-107); GLUCOSE 100 mg/dL (75-110); POTASSIUM 3.9 mmol/L (3.6-5.0); SODIUM 135.3 mmol/L (137-145)
[2018-07-08] MEDS: TAMSULOSIN HCL 0.4 MG CAP.SR.24H PO SCH (09:11)
[2018-07-08] MEDS: ENOXAPARIN SODIUM INJ 40 MG/0.4 ML DISP.SYRIN SUBCUT SCH (09:11)
[2018-07-08] MEDS: HYDROCHLOROTHIAZIDE 25 MG TABLET PO SCH (09:17)
[2018-07-08] MEDS: LISINOPRIL 10 MG TABLET PO SCH (09:17)
[2018-07-08] MEDS: VANCOMYCIN HCL 1,500 MG in DEXTROSE 5%-WATER 250 ML IV SCH ×2 (09:48→19:13)
[2018-07-08] MEDS: PROMETHAZINE HCL INJ 25 MG/1 ML VIAL IV PRN (16:09)
--- NOTE | 2018-07-08 18:05 | PDOC PROGRESS REPORT ---
Subjective Progress Note for:: 07/08/18 Subjective:: Patient was seen on afternoon rounds with family members present. He was found resting in bed comfortably on room air. He reports continued mildd suprapubic discomfort and urinary urgency. He denies chest pain, palpitations, dyspnea, nausea, vomiting, diarrhea. He has no new questions or concerns. No concerns per nursing. Reason For Visit: SEPSIS,COMPLICATED UTI,FAILED OUTPATIENT ANTI Physical Exam Vital Signs: Temp Pulse Resp BP Pulse Ox 98.6 F 71 18 122/77 99 07/08/18 12:00 07/08/18 12:00 07/08/18 12:00 07/08/18 12:00 07/08/18 12:00 Intake & Output 07/07/18 07/08/18 07/09/18 06:59 06:59 06:59 Intake Total 3000 4898 300 Output Total 970 10 Balance 2030 4888 300 Weight 100.4 kg 103.5 kg General appearance: PRESENT: no acute distress, well-developed, well-nourished Head exam: PRESENT: atraumatic, normocephalic Eye exam: PRESENT: conjunctiva pink, EOMI, PERRLA. ABSENT: scleral icterus Ear exam: PRESENT: normal external ear exam Mouth exam: PRESENT: moist, tongue midline Neck exam: ABSENT: carotid bruit, JVD, lymphadenopathy, thyromegaly Respiratory exam: PRESENT: clear to auscultation brenda. ABSENT: rales, rhonchi, wheezes Cardiovascular exam: PRESENT: RRR. ABSENT: diastolic murmur, rubs, systolic murmur Pulses: PRESENT: normal dorsalis pedis pul Vascular exam: PRESENT: normal capillary refill GI/Abdominal exam: PRESENT: normal bowel sounds, soft, tenderness - Suprapubic. ABSENT: distended, guarding, mass, organolmegaly, rebound Rectal exam: PRESENT: deferred Extremities exam: PRESENT: full ROM. ABSENT: calf tenderness, clubbing, pedal edema Neurological exam: PRESENT: alert, awake, oriented to person, oriented to place, oriented to time, oriented to situation, CN II-XII grossly intact. ABSENT: motor sensory deficit Psychiatric exam: PRESENT: appropriate affect, normal mood. ABSENT: homicidal ideation, suicidal ideation Skin exam: PRESENT: dry, intact, warm. ABSENT: cyanosis, rash Results Laboratory Results: 07/08/18 05:48 07/08/18 05:48 07/08/18 07/08/18 05:48 05:48 WBC 7.4 RBC 4.27 L Hgb 11.5 L Hct 33.8 L MCV 79 L MCH 26.9 L MCHC 34.1 RDW 11.6 Plt Count 216 Seg Neutrophils % 68.0 Lymphocytes % 19.6 Monocytes % 10.8 Eosinophils % 1.3 Basophils % 0.3 Absolute Neutrophils 5.0 Absolute Lymphocytes 1.5 Absolute Monocytes 0.8 Absolute Eosinophils 0.1 Absolute Basophils 0.0 Sodium 135.3 L Potassium 3.9 Chloride 102 Carbon Dioxide 27 Anion Gap 6 BUN 9 Creatinine 0.94 Est GFR ( Amer) > 60 Est GFR (Non-Af Amer) > 60 Glucose 100 Calcium 8.5 07/06/18 14:44 Clean Catch Midstream Urine Culture - Final Mrsa (Meth Resis Staph Aureus) Impressions: Chest X-Ray 07/06/18 14:35 IMPRESSION: NO ACUTE RADIOGRAPHIC FINDING IN THE CHEST. Assessment and Plan - Diagnosis (1) Complicated UTI (urinary tract infection) Is this a current diagnosis for this admission?: Yes Plan: Failed outpatient antibiotic treatment (Cipro). Blood culture (1 bottle from each set) shows gram-positive cocci Urine culture demonstrates MRSA. Patient continues to be febrile; T-max 102.9 in the last 48 hours. WBCs are normal. CT Abd/Pelvis (07/06/18) revealed tiny bilateral nonobstructing calculi; no other acute findings. Patient was admitted to the medical floor. Continue gentle IV fluids. Continue Cefepime; day #2 Vancomycin is added for MRSA coverage. Will adjust as cultures result. (2) Sepsis Qualifiers: Sepsis type: sepsis due to unspecified organism Qualified Code(s): A41.9 - Sepsis, unspecified organism Is this a current diagnosis for this admission?: Yes Plan: Patient presents with sepsis due to urinary tract infection, present on arrival as evidenced by Fever (1-3.2), tachycardia (HR 110), tachypnea (RR 28), and acute kidney injury (CR 1.44) Patient received aggressive fluid resuscitation. Blood and urine cultures as above. Currently on IV cefepime and vancomycin; will adjust as cultures result. (3) Acute kidney injury Is this a current diagnosis for this admission?: Yes Plan: Resolved; secondary to UTI sepsis. Creatinine on admission 1.44; decreased to 0.94. Continue gentle IV fluid hydration. Encourage p.o. fluids. Monitor with daily chemistries. Avoid nephrotoxic medications as able. (4) Hypertension Qualifiers: Hypertension type: essential hypertension Qualified Code(s): I10 - Essential (primary) hypertension Is this a current diagnosis for this admission?: Yes Plan: Normotensive at present. Continue home dose lisinopril/HCTZ. (5) Gram-positive cocci bacteremia Is this a current diagnosis for this admission?: Yes Plan: Blood cultures (07/06/18) growing gram-positive cocci in 1 bottle of each set. Urinalysis is positive for MRSA. Repeat blood cultures (07/08/2018) are pending. Urinalysis was positive for urinary tract infection (positive blood, large leuk esterase, greater than 182 WBCs). Most likely source of bacteremia. Continue IV vancomycin and cefepime; will adjust as cultures and sensitivities result. - Time Time Spent with patient: 15-24 minutes Medications reviewed and adjusted accordingly: Yes Anticipated discharge: Home
[2018-07-09] MEDS: OXYCODONE-ACETAMINOPHEN 5-325 MG TABLET PO PRN ×3 (01:32→15:13)
[2018-07-09] MEDS: VANCOMYCIN HCL 1,500 MG in DEXTROSE 5%-WATER 250 ML IV SCH ×3 (01:33→18:09)
[2018-07-09] MEDS: NORMAL SALINE 1000 ML 1,000 ML IV PRN ×2 (01:33→14:53)
[2018-07-09] MEDS: CEFEPIME 2 GM/D5W RTU 2 GM/50 ML RTUPB IV SCH ×2 (05:14→17:23)
[2018-07-09 06:25] LABS: ABSOLUTE BASOPHILS # (AUTO) 0.1 10^3/uL (0.0-0.2); ABSOLUTE EOSINOPHILS # (AUTO) 0.2 10^3/uL (0.0-0.6); ABSOLUTE LYMPHOCYTES (AUTO) 2.3 10^3/uL (0.5-4.7); ABSOLUTE MONOCYTES (AUTO) 0.9 10^3/uL (0.1-1.4); ABSOLUTE NEUT (AUTO) 4.6 10^3/uL (1.7-8.2); BASOPHILS % (AUTO) 0.6 % (0-2); EOSINOPHILS % (AUTO) 2.9 % (0-6); HEMOGLOBIN 12.1 g/dL (13.5-17.0); LYMPHOCYTES % (AUTO) 28.8 % (13-45); MEAN CORPUSCULAR HEMOGLOBIN 27.5 pg (27.0-33.4); MEAN CORPUSCULAR HGB CONC 34.4 g/dL (32.0-36.0); MEAN CORPUSCULAR VOLUME 80 fl (80-97); MONOCYTES % (AUTO) 11.6 % (3-13); PLATELET COUNT 257 10^3/uL (150-450); RED BLOOD COUNT 4.38 10^6/uL (4.35-5.55); SEGMENTED NEUTROPHILS % (AUTO) 56.1 % (42-78); TOTAL CELLS COUNTED % (AUTO) 100 %; WHITE BLOOD COUNT 8.1 10^3/uL (4.0-10.5)
[2018-07-09 06:41] LABS: ANION GAP 7 (5-19); BLOOD UREA NITROGEN 6 mg/dL (7-20); CALCIUM 8.8 mg/dL (8.4-10.2); CARBON DIOXIDE 31 mmol/L (22-30); CHLORIDE 102 mmol/L (98-107); GLUCOSE 97 mg/dL (75-110); POTASSIUM 3.6 mmol/L (3.6-5.0); SODIUM 140.3 mmol/L (137-145)
[2018-07-09] MEDS: HYDROCHLOROTHIAZIDE 25 MG TABLET PO SCH (10:11)
[2018-07-09] MEDS: ENOXAPARIN SODIUM INJ 40 MG/0.4 ML DISP.SYRIN SUBCUT SCH (10:11)
[2018-07-09] MEDS: DOCUSATE SODIUM 100 MG CAPSULE PO SCH ×2 (10:11→17:23)
[2018-07-09] MEDS: LISINOPRIL 10 MG TABLET PO SCH (10:11)
[2018-07-09] MEDS: TAMSULOSIN HCL 0.4 MG CAP.SR.24H PO SCH (10:12)
[2018-07-09 10:20] LABS: VANCOMYCIN,TROUGH 12.9 ug/mL (5.0-20.0)
--- NOTE | 2018-07-09 12:14 | PDOC PROGRESS REPORT ---
Subjective Progress Note for:: 07/09/18 Subjective:: Patient was seen on afternoon rounds with family members present. He was found resting in bed comfortably on room air. He reports continued mild suprapubic discomfort with dysuria and urinary urgency. He also reports rectal pressure and discomfort. He denies chest pain, palpitations, dyspnea, nausea, vomiting, diarrhea. He has no new questions or concerns. No concerns per nursing. Reason For Visit: SEPSIS,COMPLICATED UTI,FAILED OUTPATIENT ANTI Physical Exam Vital Signs: Temp Pulse Resp BP Pulse Ox 98.9 F 65 16 130/80 H 91 L 07/09/18 08:02 07/09/18 08:02 07/09/18 08:02 07/09/18 08:02 07/09/18 08:02 Intake & Output 07/08/18 07/09/18 07/10/18 06:59 06:59 06:59 Intake Total 4898 2350 Output Total 10 200 Balance 4888 2150 Weight 103.5 kg 103.2 kg General appearance: PRESENT: no acute distress, well-developed, well-nourished Head exam: PRESENT: atraumatic, normocephalic Eye exam: PRESENT: conjunctiva pink, EOMI, PERRLA. ABSENT: scleral icterus Ear exam: PRESENT: normal external ear exam Mouth exam: PRESENT: moist, tongue midline Neck exam: ABSENT: carotid bruit, JVD, lymphadenopathy, thyromegaly Respiratory exam: PRESENT: clear to auscultation brenda. ABSENT: rales, rhonchi, wheezes Cardiovascular exam: PRESENT: RRR. ABSENT: diastolic murmur, rubs, systolic murmur Pulses: PRESENT: normal dorsalis pedis pul Vascular exam: PRESENT: normal capillary refill GI/Abdominal exam: PRESENT: normal bowel sounds, soft, tenderness. ABSENT: dist ended, guarding, mass, organolmegaly, rebound Rectal exam: PRESENT: deferred - declined Extremities exam: PRESENT: full ROM. ABSENT: calf tenderness, clubbing, pedal edema Neurological exam: PRESENT: alert, awake, oriented to person, oriented to place, oriented to time, oriented to situation, CN II-XII grossly intact. ABSENT: motor sensory deficit Psychiatric exam: PRESENT: appropriate affect, normal mood. ABSENT: homicidal ideation, suicidal ideation Skin exam: PRESENT: dry, intact, warm. ABSENT: cyanosis, rash Results Laboratory Results: 07/09/18 05:46 07/09/18 05:46 07/09/18 07/09/18 05:46 05:46 WBC 8.1 RBC 4.38 Hgb 12.1 L Hct 35.0 L MCV 80 MCH 27.5 MCHC 34.4 RDW 12.0 Plt Count 257 Seg Neutrophils % 56.1 Lymphocytes % 28.8 Monocytes % 11.6 Eosinophils % 2.9 Basophils % 0.6 Absolute Neutrophils 4.6 Absolute Lymphocytes 2.3 Absolute Monocytes 0.9 Absolute Eosinophils 0.2 Absolute Basophils 0.1 Sodium 140.3 Potassium 3.6 Chloride 102 Carbon Dioxide 31 H Anion Gap 7 BUN 6 L Creatinine 0.97 Est GFR ( Amer) > 60 Est GFR (Non-Af Amer) > 60 Glucose 97 Calcium 8.8 07/06/18 14:44 Clean Catch Midstream Urine Culture - Final Mrsa (Meth Resis Staph Aureus) Impressions: Chest X-Ray 07/06/18 14:35 IMPRESSION: NO ACUTE RADIOGRAPHIC FINDING IN THE CHEST. Assessment and Plan - Diagnosis (1) Complicated UTI (urinary tract infection) Is this a current diagnosis for this admission?: Yes Plan: Leukocytosis has resolved, continues to have low-grade temperatures; T-max last 48 hours is 102.9, last 24 is 100.8. Now with symptoms of prostatitis (patient declines rectal exam). Failed outpatient antibiotic treatment (Cipro). Blood culture (1 bottle from each set) shows gram-positive cocci Repeat blood cultures have no growth at 24 hours (obtained after initiation of vancomycin) Urine culture demonstrates MRSA. CT Abd/Pelvis (07/06/18) revealed tiny bilateral nonobstructing calculi; no other acute findings. Patient was admitted to the medical floor. Continue gentle IV fluids. Continue Cefepime; day #3 Vancomycin is added for MRSA coverage; day #2. Will adjust as cultures result. Colace twice daily and Pyridium for comfort. Will require prolonged course of oral antibiotics (21 days total treatment) for symptoms suggestive of prostatitis. (2) Sepsis Qualifiers: Sepsis type: sepsis due to unspecified organism Qualified Code(s): A41.9 - Sepsis, unspecified organism Is this a current diagnosis for this admission?: Yes Plan: Much improved; leukocytosis has resolved, continues to have elevated temperature, but hemodynamically stable. Patient presents with sepsis due to urinary tract infection, present on arrival as evidenced by Fever (1-3.2), tachycardia (HR 110), tachypnea (RR 28), and acute kidney injury (CR 1.44) Patient received aggressive fluid resuscitation. Blood and urine cultures as above. Currently on IV cefepime and vancomycin; will adjust as cultures result. (3) Acute kidney injury Is this a current diagnosis for this admission?: Yes Plan: Resolved; secondary to UTI sepsis. Creatinine on admission 1.44; decreased to 0.94. Continue gentle IV fluid hydration. Encourage p.o. fluids. Monitor with daily chemistries. Avoid nephrotoxic medications as able. (4) Hypertension Qualifiers: Hypertension type: essential hypertension Qualified Code(s): I10 - Essential (primary) hypertension Is this a current diagnosis for this admission?: Yes Plan: Normotensive at present. Continue home dose lisinopril/HCTZ. (5) Gram-positive cocci bacteremia Is this a current diagnosis for this admission?: Yes Plan: Blood cultures (07/06/18) growing gram-positive cocci in 1 bottle of each set. Urinalysis is positive for MRSA. Repeat blood cultures (07/08/2018) are negative at 24 hours Urinalysis was positive for urinary tract infection (positive blood, large leuk esterase, greater than 182 WBCs). Most likely source of bacteremia. Continue IV vancomycin and cefepime; will adjust as cultures and sensitivities result. (6) Prostatitis Qualifiers: Prostatitis type: acute Qualified Code(s): N41.0 - Acute prostatitis Is this a current diagnosis for this admission?: Yes Plan: Patient with MRSA UTI failed outpatient therapy now reporting rectal pressure and discomfort. He denies constipation (BM yesterday). Declines rectal exam. Cultures and antibiotics as above - Time Time Spent with patient: 15-24 minutes Medications reviewed and adjusted accordingly: Yes Anticipated discharge: Home
[2018-07-09] MEDS: PHENAZOPYRIDINE HCL 200 MG TABLET PO SCH ×2 (14:52→21:08)
[2018-07-09] MEDS: ACETAMINOPHEN 325 MG TABLET PO PRN (21:07)
[2018-07-10] MEDS: NORMAL SALINE 1000 ML 1,000 ML IV PRN (00:44)
[2018-07-10] MEDS: VANCOMYCIN HCL 1,500 MG in DEXTROSE 5%-WATER 250 ML IV SCH ×3 (01:20→17:27)
[2018-07-10] MEDS: CEFEPIME 2 GM/D5W RTU 2 GM/50 ML RTUPB IV SCH (05:19)
[2018-07-10] MEDS: PHENAZOPYRIDINE HCL 200 MG TABLET PO SCH ×3 (05:19→22:44)
[2018-07-10] MEDS: HYDROCHLOROTHIAZIDE 25 MG TABLET PO SCH (11:10)
[2018-07-10] MEDS: LISINOPRIL 10 MG TABLET PO SCH (11:10)
[2018-07-10] MEDS: DOCUSATE SODIUM 100 MG CAPSULE PO SCH ×2 (11:10→17:09)
[2018-07-10] MEDS: ENOXAPARIN SODIUM INJ 40 MG/0.4 ML DISP.SYRIN SUBCUT SCH (11:10)
[2018-07-10] MEDS: TAMSULOSIN HCL 0.4 MG CAP.SR.24H PO SCH (11:10)
--- NOTE | 2018-07-10 13:16 | PDOC PROGRESS REPORT ---
Addendum entered and electronically signed by RUBEN LEMONS NP-C 07/10/18 16:31: Provider Note Provider Note: Addendum: Received call from Dr. Mazariegos to review CT results. Since prior exam, patient has developed hypodensities within the prostate worrisome for intraprostatic abscesses; 2 cm hypodensity is present in the right prostate and a 1.7 cm hypodensity is present in the left prostate with inflammation of the seminal v esicles and adjacent 1 cm lymphadenopathy. Called an [facility] for urology consultation. Spoke with Dr. Jordan. Dr. Jordan advises continued antibiotic therapy with a minimum 30-day course. He relates that surgical interventions are reserved for recurrent abscess formation. As the patient has MRSA bacteremia with multiple resistances and vancomycin MICHELLE 2, Dr. Patino is consulted. Appreciate her recommendations on length of IV therapy; anticipate transition to Bactrim DS at discharge. Original Note: Subjective Progress Note for:: 07/10/18 Subjective:: Patient was seen on morning rounds with family members present. He was found resting in bed comfortably on room air. He reports continued mild suprapubic discomfort, that is worsened with standing/upright positioning and rectal pressure. He states that the dysuria and urinary urgency are slightly improved. He denies chest pain, palpitations, dyspnea, nausea, vomiting, diarrhea. He has no new questions or concerns. No concerns per nursing. Reason For Visit: SEPSIS,COMPLICATED UTI,FAILED OUTPATIENT ANTI Physical Exam Vital Signs: Temp Pulse Resp BP Pulse Ox 98.4 F 67 18 123/77 99 07/10/18 07:50 07/10/18 07:50 07/10/18 07:50 07/10/18 07:50 07/10/18 07:50 Intake & Output 07/09/18 07/10/18 07/11/18 06:59 06:59 06:59 Intake Total 2400 3288 Output Total 200 900 Balance 2200 2388 Weight 103.2 kg General appearance: PRESENT: no acute distress, well-developed, well-nourished Head exam: PRESENT: atraumatic, normocephalic Eye exam: PRESENT: conjunctiva pink, EOMI, PERRLA. ABSENT: scleral icterus Mouth exam: PRESENT: moist, tongue midline Neck exam: ABSENT: carotid bruit, JVD, lymphadenopathy, thyromegaly Respiratory exam: PRESENT: clear to auscultation brenda, symmetrical, unlabored. ABSENT: rales, rhonchi, wheezes Cardiovascular exam: PRESENT: RRR, +S1, +S2. ABSENT: diastolic murmur, rubs, systolic murmur Pulses: PRESENT: normal dorsalis pedis pul Vascular exam: PRESENT: normal capillary refill GI/Abdominal exam: PRESENT: normal bowel sounds, soft, tenderness. ABSENT: distended, guarding, mass, organolmegaly, rebound Rectal exam: PRESENT: normal prostate. ABSENT: hemorrhoids, mass Extremities exam: PRESENT: full ROM. ABSENT: calf tenderness, clubbing, pedal edema Neurological exam: PRESENT: alert, awake, oriented to person, oriented to place, oriented to time, oriented to situation, CN II-XII grossly intact. ABSENT: motor sensory deficit Psychiatric exam: PRESENT: appropriate affect, normal mood. ABSENT: homicidal ideation, suicidal ideation Skin exam: PRESENT: dry, intact, warm. ABSENT: cyanosis, rash Results Laboratory Results: 07/09/18 05:46 07/09/18 05:46 07/06/18 16:11 Blood Blood Culture - Final Mrsa (Meth Resis Staph Aureus) 07/06/18 14:58 Blood Blood Culture - Final Mrsa (Meth Resis Staph Aureus) Impressions: Chest X-Ray 07/06/18 14:35 IMPRESSION: NO ACUTE RADIOGRAPHIC FINDING IN THE CHEST. Assessment and Plan - Diagnosis (1) Complicated UTI (urinary tract infection) Is this a current diagnosis for this admission?: Yes Plan: Improved. Leukocytosis has resolved,T-max last 48 hours is 100.8. He continues to have suprapubic abdominal discomfort that worsens with upright positioning/standing, rectal pressure and discomfort, dysuria, and urinary frequency. Failed outpatient antibiotic treatment (Cipro). Blood culture (1 bottle from each set) positive for MRSA. Vancomycin MICHELLE 2 Repeat blood cultures have no growth at 48 hours (obtained after initiation of vancomycin) Urine culture demonstrates MRSA. CT Abd/Pelvis (07/06/18) revealed tiny bilateral nonobstructing calculi; no other acute findings. Patient was admitted to the medical floor. We will stop cefepime today; received 4 days of therapy. Vancomycin is added for MRSA coverage; day #3. Colace twice daily and Pyridium for comfort. Given that MRSA UTI is rare, especially in a young otherwise healthy male, will consult Dr. Patino for guidance. Will evaluate for other sources of MRSA (perhaps this is bacteremia with urinary tract seeding); pelvic CT with IV and oral contrast is pending (2) Sepsis Qualifiers: Sepsis type: sepsis due to unspecified organism Qualified Code(s): A41.9 - Sepsis, unspecified organism Is this a current diagnosis for this admission?: Yes Plan: Much improved; leukocytosis has resolved, continues to have elevated temperature, but hemodynamically stable. Patient presents with sepsis due to urinary tract infection, present on arrival as evidenced by Fever (1-3.2), tachycardia (HR 110), tachypnea (RR 28), and acute kidney injury (CR 1.44) Patient received aggressive fluid resuscitation. Blood and urine cultures as above. Currently on IV cefepime and vancomycin; will adjust as cultures result. (3) Acute kidney injury Is this a current diagnosis for this admission?: Yes Plan: Resolved; secondary to UTI sepsis. Creatinine on admission 1.44; decreased to 0.94. Encourage p.o. fluids. Monitor with daily chemistries. Avoid nephrotoxic medications as able. (4) Hypertension Qualifiers: Hypertension type: essential hypertension Qualified Code(s): I10 - Essential (primary) hypertension Is this a current diagnosis for this admission?: Yes Plan: Normotensive at present. Continue home dose lisinopril/HCTZ. (5) Gram-positive cocci bacteremia Is this a current diagnosis for this admission?: Yes Plan: Blood cultures (07/06/18; 1 bottle of each set) positive for MRSA. Urinalysis is positive for MRSA. Repeat blood cultures (07/08/2018) are negative at 48 hours Urinalysis was positive for urinary tract infection (positive blood, large leuk esterase, greater than 182 WBCs). Possible source of bacteremia; although MRSA UTI is uncommon. Continue IV vancomycin; will adjust as cultures and sensitivities result. We will consult infectious disease. (6) Prostatitis Qualifiers: Prostatitis type: acute Qualified Code(s): N41.0 - Acute prostatitis Is this a current diagnosis for this admission?: Yes Plan: Prostatitis remains in the differential, though less likely as rectal exam today was unremarkable; firm prostate, not tender on digital exam. No hemorrhoids. Patient with MRSA UTI failed outpatient therapy now reporting rectal pressure and discomfort. He denies constipation. Cultures and antibiotics as above We will obtain a CT of the pelvis with oral and IV contrast to evaluate for rectal abscess. - Time Time Spent with patient: 25-34 minutes Medications reviewed and adjusted accordingly: Yes Anticipated discharge: Home - Plan Summary Plan Summary: Patient's clinical course and culture results reviewed with Dr. Goldberg; will obtain CT of the pelvis and consult infectious disease.
--- NOTE | 2018-07-10 16:03 | RADIOLOGY REPORT (SQ) ---
EXAM DESCRIPTION: CT ABDOMEN WITH IV ORAL CONT COMPLETED DATE/TIME: 07/10/2018 3:41 pm REASON FOR STUDY: bacteremia, rectal pain, ? abscess COMPARISON: 07/06/2018 CT abdomen pelvis TECHNIQUE: CT scan of the abdomen and pelvis performed with intravenous and with oral contrast using helical scanning technique with dynamic intravenous contrast injection. Images reviewed with lung, s oft tissue, and bone windows. Reconstructed coronal and sagittal MPR images reviewed. Delayed images for evaluation of the urinary system also acquired and evaluated. All images stored on PACS. All CT scanners at this facility use dose modulation, iterative reconstruc tion, and/or weight based dosing when appropriate to reduce radiation dose to as low as reasonably ac hievable (ALARA). [facility]: Dose Right [facility]: CareDose [facility]: Dose Right [facility]: Teradose 4D [facility]: Abound Logic CONTRAST TYPE AND DOSE: contrast/concentration: Isovue 350.00 mg/ml; Total Contrast Delivered: 100.0 ml; Total Saline Delivered: 72.0 ml RENAL FUNCTION: None required. The patient is less than 50 years old. RADIATION DOSE: CT Rad equipment meets quality standard of care and radiation dose reduction techniq ues were employed. CTDIvol: 12.4 - 16.2 mGy. DLP: 1758 mGy-cm. . LIMITATIONS: None. FINDINGS: Since the prior CT exam 07/06/2018, patient has developed hypodensities within the prostate worrisome for intra prostatic abscesses. A 2 cm hypodensity is present in the right prostate on cor onal image 41. I 1.7 cm hypodensity is present in the left prostate on axial image 89. There is inf lammation of the seminal vesicles left greater than right. Small 1 cm left periprosthetic lymph node s are present on axial image 78-80. These findings were called to Lupe Grover. Rectum bladder unremarkable. LOWER CHEST: No significant findings. No nodules or infiltrates. LIVER: Normal size. No masses. No dilated ducts. SPLEEN: Normal size. No focal lesions. PANCREAS: No masses. No significant calcifications. No adjacent inflammation or peripancreatic fluid collections. Pancreatic duct not dilated. GALLBLADDER: No identified stones by CT criteria. No inflammatory changes to suggest cholecystitis. ADRENAL GLANDS: No significant masses or asymmetry. RIGHT KIDNEY AND URETER: No solid masses. Tiny less than 5 mm right mid and lower pole intrarenal s tones. No ureteral calculi. No hydronephrosis or hydroureter. LEFT KIDNEY AND URETER: No solid masses. Tiny less than 3 mm left upper pole intrarenal stone. No left ureteral calculi. No hydronephrosis or hydroureter. AORTA AND VESSELS: No aneurysm. No dissection. Renal arteries, SMA, celiac without stenosis. RETROPERITONEUM: No retroperitoneal adenopathy, hemorrhage or masses. BOWEL AND PERITONEAL CAVITY: Patient drank oral contrast. No CT evidence of bowel obstruction or tuan e intraperitoneal air or fluid. APPENDIX: Normal. ABDOMINAL WALL: No masses. No hernias. BONES: No significant or acute findings. PELVIS: As above IMPRESSION: Intra prostatic abscesses with enlarged left seminal vesicle. Findings called to the patient's provider, Lupe Grover 1545 hours 07/10/2018 TECHNICAL DOCUMENTATION: JOB ID: [id number] Quality ID # [id number]: Final reports with documentation of one or more dose reduction techniques (e.g., Au tomated exposure control, adjustment of the mA and/or kV according to patient size, use of iterative reconstruction technique) 2010 [employer]- All Rights Reserved Reading location - IP/workstation name: [email or web address]
[2018-07-10] MEDS: PROMETHAZINE HCL INJ 25 MG/1 ML VIAL IV PRN (17:27)
[2018-07-10] MEDS ORDERED: PROMETHAZINE HCL INJ 25 MG/1 ML VIAL IV PRN (18:00)
[2018-07-11] MEDS: VANCOMYCIN HCL 1,500 MG in DEXTROSE 5%-WATER 250 ML IV SCH ×2 (02:51→09:07)
[2018-07-11] MEDS: PHENAZOPYRIDINE HCL 200 MG TABLET PO SCH ×2 (05:26→13:10)
[2018-07-11 06:31] LABS: HEMATOCRIT 35.4 % (37.9-51.0); MEAN CORPUSCULAR HEMOGLOBIN 27.1 pg (27.0-33.4); MEAN CORPUSCULAR HGB CONC 34.1 g/dL (32.0-36.0); MEAN CORPUSCULAR VOLUME 80 fl (80-97); PLATELET COUNT 315 10^3/uL (150-450); RED BLOOD COUNT 4.45 10^6/uL (4.35-5.55); RED CELL DISTRIBUTION WIDTH 11.9 % (11.5-14.0); WHITE BLOOD COUNT 7.7 10^3/uL (4.0-10.5)
[2018-07-11 06:50] LABS: ANION GAP 6 (5-19); BLOOD UREA NITROGEN 8 mg/dL (7-20); CALCIUM 9.7 mg/dL (8.4-10.2); CARBON DIOXIDE 32 mmol/L (22-30); CHLORIDE 101 mmol/L (98-107); GLUCOSE 94 mg/dL (75-110); POTASSIUM 3.9 mmol/L (3.6-5.0); SODIUM 139.3 mmol/L (137-145)
[2018-07-11] MEDS: HYDROCHLOROTHIAZIDE 25 MG TABLET PO SCH (09:08)
[2018-07-11] MEDS: ENOXAPARIN SODIUM INJ 40 MG/0.4 ML DISP.SYRIN SUBCUT SCH (09:08)
[2018-07-11] MEDS: LISINOPRIL 10 MG TABLET PO SCH (09:08)
[2018-07-11] MEDS: TAMSULOSIN HCL 0.4 MG CAP.SR.24H PO SCH (09:08)
[2018-07-11] MEDS: DOCUSATE SODIUM 100 MG CAPSULE PO SCH ×2 (09:08→17:12)
--- NOTE | 2018-07-11 11:57 | PDOC PROGRESS REPORT ---
Subjective Progress Note for:: 07/11/18 Subjective:: Patient was seen on morning rounds with family members present. He was found resting in bed comfortably on room air. He reports improved symptoms today; his suprapubic pain has resolved and his rectal discomfort is improved. He did have some difficulty with urinary retention overnight, but reports that he was able to void without difficulty this morning. He denies chest pain, palpitations, dyspnea, nausea, vomiting, diarrhea. He has no new questions or concerns. No concerns per nursing. Reason For Visit: SEPSIS,COMPLICATED UTI,FAILED OUTPATIENT ANTI Physical Exam Vital Signs: Temp Pulse Resp BP Pulse Ox 98.5 F 78 24 H 134/67 H 97 07/11/18 11:31 07/11/18 11:31 07/11/18 11:31 07/11/18 11:31 07/11/18 11:31 Intake & Output 07/10/18 07/11/18 07/12/18 06:59 06:59 06:59 Intake Total 3288 950 1062 Output Total 900 1075 Balance 2388 -125 1062 Weight 102.1 kg General appearance: PRESENT: no acute distress, well-developed, well-nourished Head exam: PRESENT: atraumatic, normocephalic Eye exam: PRESENT: conjunctiva pink, EOMI, PERRLA. ABSENT: scleral icterus Mouth exam: PRESENT: moist, tongue midline Neck exam: ABSENT: carotid bruit, JVD, lymphadenopathy, thyromegaly Respiratory exam: PRESENT: clear to auscultation brenda, symmetrical, unlabored. ABSENT: rales, rhonchi, wheezes Cardiovascular exam: PRESENT: RRR. ABSENT: diastolic murmur, rubs, systolic murmur Pulses: PRESENT: normal dorsalis pedis pul Vascular exam: PRESENT: normal capillary refill GI/Abdominal exam: PRESENT: normal bowel sounds, soft. ABSENT: distended, guarding, mass, organolmegaly, rebound, tenderness Rectal exam: PRESENT: deferred Extremities exam: PRESENT: full ROM. ABSENT: calf tenderness, clubbing, pedal edema Neurological exam: PRESENT: alert, awake, oriented to person, oriented to place, oriented to time, oriented to situation, CN II-XII grossly intact. ABSENT: motor sensory deficit Psychiatric exam: PRESENT: appropriate affect, normal mood. ABSENT: homicidal ideation, suicidal ideation Skin exam: PRESENT: dry, intact, warm. ABSENT: cyanosis, rash Results Laboratory Results: 07/11/18 06:05 07/11/18 06:05 07/11/18 07/11/18 06:05 06:05 WBC 7.7 RBC 4.45 Hgb 12.0 L Hct 35.4 L MCV 80 MCH 27.1 MCHC 34.1 RDW 11.9 Plt Count 315 Sodium 139.3 Potassium 3.9 Chloride 101 Carbon Dioxide 32 H Anion Gap 6 BUN 8 Creatinine 0.98 Est GFR ( Amer) > 60 Est GFR (Non-Af Amer) > 60 Glucose 94 Calcium 9.7 Impressions: Chest X-Ray 07/06/18 14:35 IMPRESSION: NO ACUTE RADIOGRAPHIC FINDING IN THE CHEST. Abdomen CT 07/10/18 11:29 IMPRESSION: Intra prostatic abscesses with enlarged left seminal vesicle. Findings called to the patient's provider, Lupe Grover 1545 hours 07/10/2018 Assessment and Plan - Diagnosis (1) Complicated UTI (urinary tract infection) Is this a current diagnosis for this admission?: Yes Plan: Improved. Leukocytosis has resolved, afebrile >48 hrs. Pain, dysuria, and urinary retention is improved. Failed outpatient antibiotic treatment (Cipro). Blood culture (1 bottle from each set) positive for MRSA. Vancomycin MICHELLE 2 Repeat blood cultures have no growth at 72 hours (obtained after initiation of vancomycin) Urine culture demonstrates MRSA. CT Abd/Pelvis (07/06/18) revealed tiny bilateral nonobstructing calculi; no other acute findings. CT Pelvis (07/10/18) showed prostatitis with intra-prostatic abscesses. Patient was admitted to the medical floor. We will stop cefepime yesterday; received 4 days of therapy. Vancomycin is added for MRSA coverage; day #4. Colace twice daily and Pyridium for comfort. Given that MRSA UTI is rare, especially in a young otherwise healthy male, will consult Dr. Patino for guidance. (2) Sepsis Qualifiers: Sepsis type: sepsis due to unspecified organism Qualified Code(s): A41.9 - Sepsis, unspecified organism Is this a current diagnosis for this admission?: Yes Plan: Patient presents with sepsis due to urinary tract infection, present on arrival as evidenced by Fever (1-3.2), tachycardia (HR 110), tachypnea (RR 28), and acute kidney injury (CR 1.44) Patient received aggressive fluid resuscitation. Blood and urine cultures as above. Currently on vancomycin; infectious disease consult pending. (3) Acute kidney injury Is this a current diagnosis for this admission?: Yes Plan: Resolved; secondary to UTI sepsis. Creatinine on admission 1.44; decreased to 0.94. Encourage p.o. fluids. Monitor with daily chemistries. Avoid nephrotoxic medications as able. (4) Hypertension Qualifiers: Hypertension type: essential hypertension Qualified Code(s): I10 - Essential (primary) hypertension Is this a current diagnosis for this admission?: Yes Plan: Normotensive at present. Continue home dose lisinopril/HCTZ. (5) Gram-positive cocci bacteremia Is this a current diagnosis for this admission?: Yes Plan: Blood cultures (07/06/18; 1 bottle of each set) positive for MRSA. Urinalysis is positive for MRSA. Repeat blood cultures (07/08/2018) are negative at 72 hours Urinalysis was positive for urinary tract infection (positive blood, large leuk esterase, greater than 182 WBCs), and confirmed prostatitis with abscesses on CT imaging. Possible source of bacteremia; although MRSA UTI is uncommon. Continue IV vancomycin; will adjust as cultures and sensitivities result. We will consult infectious disease. (6) Prostatitis Qualifiers: Prostatitis type: acute Qualified Code(s): N41.0 - Acute prostatitis Is this a current diagnosis for this admission?: Yes Plan: Prostatitis remains in the differential, though less likely as rectal exam today was unremarkable; firm prostate, not tender on digital exam. No hemorrhoids. Patient with MRSA UTI failed outpatient therapy now reporting rectal pressure and discomfort. He denies constipation. CT pelvis with oral and IV contrast yesterday showed development of hypodensities within the prostate worrisome for intraprostatic abscesses; 2 cm hypodensity is present in the right prostate and a 1.7 cm hypodensity is present in the left prostate with inflammation of the seminal vesicles and adjacent 1 cm lymphadenopathy. Spoke with Dr. Jordan, [facility] Urology, who advises continued antibiotic therapy with a minimum 30-day course. He relates that surgical interventions are reserved for recurrent abscess formation. As the patient has MRSA bacteremia with multiple resistances and vancomycin MICHELLE 2, Dr. Patino is consulted. Appreciate her recommendations on length of IV therapy; anticipate transition to Bactrim DS at discharge. - Time Time Spent with patient: 15-24 minutes Medications reviewed and adjusted accordingly: Yes Anticipated discharge: Home
[2018-07-11] MEDS ORDERED: PROMETHAZINE HCL INJ 25 MG/1 ML VIAL IV PRN (14:00)
[2018-07-11 15:51] LABS: ALANINE AMINOTRANSFERASE 826 U/L (21-72); ALBUMIN 3.7 g/dL (3.5-5.0); ALKALINE PHOSPHATASE 173 U/L (38-126); ASPARTATE AMINO TRANSFERASE 709 U/L (17-59); BILIRUBIN,DIRECT 0.2 mg/dL (0.0-0.4); BILIRUBIN,TOTAL 0.6 mg/dL (0.2-1.3); CREATINE KINASE 209 U/L (55-170); TOTAL PROTEIN 7.8 g/dL (6.3-8.2)
[2018-07-11] MEDS ORDERED: OXYCODONE-ACETAMINOPHEN 5-325 MG TABLET PO PRN (16:09)
[2018-07-11] MEDS ORDERED: KETOROLAC TROMETHAMINE INJ/PF 30 MG/1 ML SDV IV PRN (16:25)
--- NOTE | 2018-07-11 17:25 | Progress Note ---
Provider Note Provider Note: ID Consult Note Asked to review patient's chart by Lupe Grover NP. Pt not seen or examined. Pt is a 32 year old man with PMH of HTN and kidney stones who presented on 07/06/18 with dysuria, fever, suprapubic tenderness and low back pain or left flank pain. He denied penile discharge or drainage. He was given a prescription for Cipro, Toradol and Flomax at an Urgent care center 2 days ago and returned to the [facility] ED when he had no improvement with this. At home he had an episode of NV and rigors. VS included Tmax 103 F. He was tachycardic. On exam, pt had no murmur, no CVAT, no midline spinal tenderness over his back. He had suprapubic tenderness. Labs included FABIOLA with SCr. 1.4. Urinalysis had a large amount of leukocyte esterase, pyuria, 17 RBC/hpf, small blood. CT abd/pelvis without contrast on 07/06 showed nonobstructive b/l nephrolithiasis. Blood cultures on admission 07/06 grew MRSA. Urine culture also grew 80-90k cfu of MRSA. Vancomycin MICHELLE is 2. Pt continued to have complaints of suprapubic discomfort worse with standing and rectal pressure. A CT with IV and oral contrast was performed on 07/10 that showed hypodensities within the prostate worrisome for intraprostatic abscesses with a 2 cm hypodensity seen in the right prostate and a 1.7 cm hypodensity in the left prostate. Urology at [facility] in [place] was contacted for telephone consultation, and treatment was advised for at least a 30 day course. Vancomycin was started on 07/07. The patient has been receiving vancomycin 1.6 g q8h. His vancomycin trough was 12.9. Repeat blood cultures on 07/08 were negative. Of note, CPK today was 209, AST 709, ALT 826, alk phos 173. SCr 0.98. On admission transaminases were normal. Impression/Recommendations sepsis due to MRSA bacteremia secondary to prostate abscesses - Repeat blood cultures readily cleared, negative from 07/08; patient also defervesced within 72h with last fever on 07/08. He has shown improvement, but the total amount of vancomycin he has been requiring is 4.5 grams a day. Vancomycin does not appear to be a sustainable option to continue treatment. Suggest discontinuing vancomycin. - The patient has transaminases that are elevated today without a known cause. While working this up, I would still attempt to treat him with daptomycin 800 mg daily IV and plan to recheck LFTs and CPK tomorrow. Daptomycin has been associated with minimally higher rates of elevated serum transaminases compared to placebo or comparator drugs in studies; a few case reports of daptomcyin as a cause of liver injury have occurred with prolonged exposure. I do not think he has an absolute contraindication to attempting treatment with daptomycin. - Linezolid 600 mg BID IV or PO another option but would not be standard of care for bacteremia. It would be a good switch option after an initial two weeks (until 07/22) is completed with daptomycin IV or given throughout the duration of therapy if daptomycin is not tolerated for some reason. - I would aim for 6 weeks of treatment, starting from the date of first negative blood cultures. Follow up with Urology would likely be needed. Joaquin Patino MD [facility], [facility] Infectious Diseases pager [phone]
[2018-07-11 17:44] LABS: AMORPHOUS SEDIMENT,URINE TRACE /HPF; APPEARANCE,URINE CLEAR; BILIRUBIN,URINE NEGATIVE (NEGATIVE); GLUCOSE, URINE NEGATIVE (NEGATIVE); KETONES,URINE NEGATIVE (NEGATIVE); LEUKOCYTE ESTERASE,URINE TRACE (NEGATIVE); NITRITE,URINE POSITIVE (NEGATIVE); PROTEIN,URINE NEGATIVE (NEGATIVE); URINE SPECIFIC GRAVITY 1.008
[2018-07-11 17:49] LABS: COLOR,URINE YELLOW
--- NOTE | 2018-07-11 17:56 | PDOC TRANSFER SUMMARY ---
General Admission Date/PCP: 07/06/18 18:36 HENRY RAJPUT MD Admission Date: 07/06/18 Transfer Date: 07/11/18 Accepting Facility: [facility] Accepting Physician: Dr. Nolasco Resuscitation Status: Full Code - Transfer Diagnosis (1) Complicated UTI (urinary tract infection) Is this a current diagnosis for this admission?: Yes (2) Sepsis Is this a current diagnosis for this admission?: Yes (3) Acute kidney injury Is this a current diagnosis for this admission?: Yes (4) Hypertension Is this a current diagnosis for this admission?: Yes (5) Prostatitis Is this a current diagnosis for this admission?: Yes (6) Prostate abscess Is this a current diagnosis for this admission?: Yes (7) MRSA bacteremia Is this a current diagnosis for this admission?: Yes (8) Gram-positive cocci bacteremia Is this a current diagnosis for this admission?: Yes - Transfer Medications Home Medications: Ciprofloxacin HCl [Cipro] 500 mg PO BID 07/06/18 Lisinopril/Hydrochlorothiazide [Lisinopril-Hctz 20-25 mg Tab] 1 each PO DAILY 07/06/18 Tamsulosin HCl [Flomax 0.4 mg Cap.sr] 0.4 mg PO DAILY 07/06/18 Transfer Medications: Current Medications Docusate Sodium (Colace 100 Mg Capsule) 100 mg PO BID [facility] Stop: 08/08/18 09:59 Last Admin: 07/11/18 17:12 Dose: 100 mg Documented by: Fondaparinux (Arixtra Inj 2.5 Mg/0.5 Ml Disp.Syrin) 2.5 mg SUBCUT DAILY [facility] Stop: 08/11/18 09:59 Hydrochlorothiazide (Hydrodiuril 25 Mg Tablet) 25 mg PO DAILY [facility] Stop: 08/06/18 09:59 Last Admin: 07/11/18 09:08 Dose: 25 mg Documented by: Daptomycin 800 mg/ Sodium (Chloride) 50 mls @ 100 mls/hr IV QHS [facility] Stop: 07/18/18 21:59 Ketorolac Tromethamine (Toradol Inj/Pf 30 Mg/1 Ml Sdv) 15 mg IV Q6HP PRN PRN Reason: FOR PAIN Stop: 07/16/18 16:24 Lisinopril (Prinivil 10 Mg Tablet) 20 mg PO DAILY [facility] Stop: 08/06/18 09:59 Last Admin: 07/11/18 09:08 Dose: 20 mg Documented by: Phenazopyridine HCl (Pyridium 200 Mg Tablet) 200 mg PO Q8 [facility] Stop: 08/08/18 13:59 Last Admin: 07/11/18 13:10 Dose: 200 mg Documented by: Promethazine HCl (Phenergan Inj 25 Mg/1 Ml Vial) 12.5 mg IV Q4HP PRN PRN Reason: FOR NAUSEA/VOMITING Stop: 08/05/18 18:12 Tamsulosin HCl (Flomax 0.4 Mg Cap.Sr) 0.4 mg PO DAILY [facility] Stop: 08/06/18 09:59 Last Admin: 07/11/18 09:08 Dose: 0.4 mg Documented by: - Allergies Allergies/Adverse Reactions: No Known Allergies Allergy (Verified 07/06/18 14:08) - Diet/Activity Discharge Diet: Regular Discharge Activity: Activity As Tolerated Hospital Course Hospital Course: Per H&P: GILBERT WESTBROOK is a 32 year old black male patient with no significant medical history except for hypertension presented with chief complaint of fever and back pain. Initially the patient visited his primary care physician office where he was diagnosed with UTI and he was given Cipro and pain medication to no avail. This is his second visit to [facility]. She did report this dysuria and intermittent fever. His T-max is 103.2. His blood work shows mild leukocytosis and acute kidney injury with creatinine of 1.4. CT scan of the abdomen and pelvis without contrast reported as nonobstructive bilateral nephrolithiasis without evidence of lower urinary tract calculus or hydronephrosis. His urinalysis is compatible with UTI evidenced by large leukocyte esterase and pyuria. Course: The patient was admitted to the medical floor with sepsis secondary to urinary tract infection. He was provided generous IV fluids and empirically placed on IV cefepime. His sepsis rapidly resolved; though continues to have low-grade temperature (99.9 this morning). Urinalysis and initial blood set of cultures grew MRSA and so IV Vancomycin was added. The patient's symptoms have improved; left flank pain has resolved, no suprapubic abdominal discomfort is improved, dysuria improved following initiation of Pyridium, though he continues to have has had intermittent epis odes of urinary retention and persistent rectal pain. Prostate exam was unremarkable. A pelvic CT with oral and IV contrast was obtained to rule out rectal abscess and revealed prostatitis with multiple intraprostatic abscesses; largest measuring [address] Jordan at [facility] was consulted; advised continued antibiotics for 30 days but did not feel the patient required percutaneous drainage. Following day, infectious disease was consulted. Discussed with Dr. Patino the patient's MRSA cultures with PCN MICHELLE of 2. Dr. Patino expressed similar reservations regarding antibiotic management alone for treatment of his abscesses. She did advise discontinuing vancomycin and starting daptomycin. LFTs and CK were checked this afternoon in preparation for antibiotic change; found to have an AST of 709, ALT 826, alk phos 173, and CK 209. His LFTs were normal on admission labs. A repeat urinalysis demonstrates persistent UTI with small blood, positive nitrites, trace leukoesterase. UDS toxicology is pending. GC chlamydia, HIV, and RPR are pending. Review of medications do not reveal the cause of elevated transaminase; he has only received 975 mg of Tylenol within the last 48 hours. Remaining medications were adjusted for hepatic dosing. A second opinion was sought at [facility]. Spoke with Dr. Sweeney, urology, who advised the patient would likely benefit from transrectal percutaneous draining. He deferred admission to the medical service. Spoke with Dr. Nolasco, hospitalist, who has agreed to accept the patient into her service with urology consultation. Physical Exam Vital Signs: Temp Pulse Resp BP Pulse Ox 99.2 F 55 L 18 125/76 94 07/11/18 16:00 07/11/18 16:00 07/11/18 16:00 07/11/18 16:00 07/11/18 16:00 Intake & Output 07/10/18 07/11/18 07/12/18 06:59 06:59 06:59 Intake Total 3288 950 1062 Output Total 900 1075 Balance 2388 -125 1062 Weight 102.1 kg General appearance: PRESENT: no acute distress, well-developed, well-nourished Head exam: PRESENT: atraumatic, normocephalic Eye exam: PRESENT: conjunctiva pink, EOMI, PERRLA. ABSENT: scleral icterus Ear exam: PRESENT: normal external ear exam Mouth exam: PRESENT: moist, tongue midline Neck exam: ABSENT: carotid bruit, JVD, lymphadenopathy, thyromegaly Respiratory exam: PRESENT: clear to auscultation brenda. ABSENT: rales, rhonchi, wheezes Cardiovascular exam: PRESENT: RRR. ABSENT: diastolic murmur, rubs, systolic murmur Pulses: PRESENT: normal dorsalis pedis pul Vascular exam: PRESENT: normal capillary refill GI/Abdominal exam: PRESENT: normal bowel sounds, soft. ABSENT: distended, guarding, mass, organolmegaly, rebound, tenderness Rectal exam: PRESENT: deferred Extremities exam: PRESENT: full ROM. ABSENT: calf tenderness, clubbing, pedal edema Neurological exam: PRESENT: alert, awake, oriented to person, oriented to place, oriented to time, oriented to situation, CN II-XII grossly intact. ABSENT: motor sensory deficit Psychiatric exam: PRESENT: appropriate affect, normal mood. ABSENT: homicidal ideation, suicidal ideation Skin exam: PRESENT: dry, intact, warm. ABSENT: cyanosis, rash Results Laboratory Results: 07/11/18 06:05 07/11/18 07/11/18 07/11/18 06:05 06:05 15:25 WBC 7.7 RBC 4.45 Hgb 12.0 L Hct 35.4 L MCV 80 MCH 27.1 MCHC 34.1 RDW 11.9 Plt Count 315 Sodium 139.3 Potassium 3.9 Chloride 101 Carbon Dioxide 32 H Anion Gap 6 BUN 8 Creatinine 0.98 Est GFR ( Amer) > 60 Est GFR (Non-Af Amer) > 60 Glucose 94 Calcium 9.7 Total Bilirubin 0.6 AST 709 H ALT 826 H Alkaline Phosphatase 173 H Total Protein 7.8 Albumin 3.7 07/11/18 15:25 Creatine Kinase 209 H Impressions: Chest X-Ray 07/06/18 14:35 IMPRESSION: NO ACUTE RADIOGRAPHIC FINDING IN THE CHEST. Abdomen CT 07/10/18 11:29 IMPRESSION: Intra prostatic abscesses with enlarged left seminal vesicle. Findings called to the patient's provider, Lupe Grover 1545 hours 07/10/2018 Plan Discharge Plan: Transfer to [facility] into the care of Dr. Nolasco, hospitalist, with Dr. Sweeney, Urology, and Dr. Patino, Infectious Disease, consulted. Time Spent: Greater than 30 Minutes
[2018-07-11 18:01] LABS: URINE AMPHETAMINES SCREEN NEGATIVE; URINE BARBITURATES SCREEN NEGATIVE; URINE BENZODIAZEPINES SCREEN NEGATIVE; URINE COCAINE SCREEN NEGATIVE; URINE MARIJUANA (THC) SCREEN NEGATIVE; URINE METHADONE SCREEN NEGATIVE; URINE PHENCYCLIDINE SCREEN NEGATIVE
[2018-07-11 18:04] LABS: ALANINE AMINOTRANSFERASE 875 U/L (21-72); ALBUMIN 3.9 g/dL (3.5-5.0); ALKALINE PHOSPHATASE 178 U/L (38-126); ANION GAP 9 (5-19); ASPARTATE AMINO TRANSFERASE 735 U/L (17-59); BILIRUBIN,DIRECT 0.1 mg/dL (0.0-0.4); BILIRUBIN,TOTAL 0.6 mg/dL (0.2-1.3); BLOOD UREA NITROGEN 9 mg/dL (7-20); CALCIUM 9.6 mg/dL (8.4-10.2); CARBON DIOXIDE 32 mmol/L (22-30); CHLORIDE 96 mmol/L (98-107); CREATINE KINASE 223 U/L (55-170); GLUCOSE 131 mg/dL (75-110); POTASSIUM 3.5 mmol/L (3.6-5.0); TOTAL PROTEIN 8.2 g/dL (6.3-8.2)
[2018-07-11 19:09] LABS: CHLAM PCR NOT DETECTED (NOT DETECT); GON PCR NOT DETECTED (NOT DETECT)
[2018-07-11] MEDS ORDERED: DAPTOMYCIN 800 MG in NORMAL SALINE 50 ML IV SCH (22:00)
[2018-07-11 22:06] VITALS: BP 132/91
--- NOTE | 2018-07-11 22:19 | XCELERA REPORT ---
[address] [address] Transthoracic Echocardiogram Report Name: GILBERT WESTBROOK Age: 32 yrs Gender: Male : 1985 Patient Status: Inpatient Patient Location: [address] [place], [place] [address] Study Date: 07/11/2018 05:34 PM Height: 73 in Weight: 225 lb BSA: 2.3 m2 Procedure: A two-dimensional transthoracic echocardiogram with color flow Doppler was performed. Images were not obtained from all of the standard acoustic windows due to the limited scope of the study. Reason For Study: bacteremia / endocarditis. History: bacteremia / endocarditis. Ordering Physician: RUBEN LEMONS Performed By: Maryuri Dietz Interpretation Summary The left ventricle is normal in size. No 'True 2 Chamber Apical Views' obtained.Hence cannot comment on the apical and basal inferior kaplan,and the apical and basal anterior kaplan,The mid inferior,mid anterior and the rest of the LV kaplan contract normally.In these limited views the LVEF is greater elise 65%.No LVH. There is no thrombus. No ASD,VSD , or PFO seen. The right ventricle is normal in size and function. The right atrium is normal. The left atrial size is normal. There is no evidence of mitral valve prolapse. HIGH SUSPICION FOR A SMALL MOBILE VEGETATION ON THE ANTERIOR MITRAL VALVE LEAFLET.RECOMMEND CONCEPCION. There is no mitral valve stenosis. There is a trace to mild amount of mitral regurgitation There is no aortic valvular vegetation. There is no aortic valve stenosis No aortic regurgitation is present. There is no tricuspid stenosis. There is a trace amount of tricuspid regurgitation Right ventricular systolic pressure is normal. RVSP is 17 to 22 mm of Hg , with RA mean of 5 to 10. There is no pulmonic valvular stenosis. There is a trace amount of pulmonic regurgitation The aortic root is normal size. The inferior vena cava appeared normal and decreased > 50% with respiration (RAP 5-10 mmHg) There is no pericardial effusion. MMode/2D Measurements & Calculations RVDd: 2.7 cm LVIDd: 4.7 cm FS: 38.8 % Ao root diam: 3.2 cm IVSd: 0.93 cm LVIDs: 2.9 cm EDV(Teich): Ao root area: LVPWd: 0.99 cm 100.3 ml 8.3 cm2 ESV(Teich): 31.0 mlLA dimension: 2.7 cm EF(Teich): 69.1 % LVLd ap4: 6.6 cm SV(MOD-sp4): EDV(MOD-sp4): 33.0 ml 47.0 ml LVLs ap4: 5.0 cm ESV(MOD-sp4): 14.0 ml EF(MOD-sp4): 70.2 % Doppler Measurements & Calculations MV E max khoa: MV P1/2t max khoa: Ao V2 max: LV V1 max P.6 cm/sec 83.8 cm/sec 120.5 cm/sec 3.5 mmHg MV A max khoa: MV P1/2t: 52.5 msec Ao max PG: LV V1 max: 87.4 cm/sec MVA(P1/2t): 4.2 cm2 5.8 mmHg 93.8 cm/sec MV E/A: 0.82 MV dec slope: 467.0 cm/sec2 MV dec time: 0.23 sec PA V2 max: PI end-d khoa: TR max khoa: MV P1/2t-pr_phl: 119.4 cm/sec 109.9 cm/sec 172.7 cm/sec 52.5 msec PA max PG: TR max P.7 mmHg 11.9 mmHg Left Ventricle The left ventricle is normal in size. No 'True 2 Chamber Apical Views' obtained.Hence cannot comment on the apical and basal inferior kaplan,and the apical and basal anterior kaplan,The mid inferior,mid anterior and the rest of the LV kaplan contract normally.In these limited views the LVEF is greater elise 65%.No LVH. Doppler measurements suggest impaired left ventricular relaxation, which is associated with grade I/IV or mild diastolic dysfunction. There is no thrombus. No ASD,VSD , or PFO seen. Right Ventricle The right ventricle is normal in size and function. Atria The right atrium is normal. The left atrial size is normal. Mitral Valve There is no evidence of mitral valve prolapse. HIGH SUSPICION FOR A SMALL MOBILE VEGETATION ON THE ANTERIOR MITRAL VALVE LEAFLET.RECOMMEND CONCEPCION. There is no mitral valve stenosis. There is a trace to mild amount of mitral regurgitation. Aortic Valve There is no aortic valvular vegetation. There is no aortic valve stenosis. There is no LVOT obstruction. No aortic regurgitation is present. Tricuspid Valve There is no tricuspid stenosis. There is a trace amount of tricuspid regurgitation. Right ventricular systolic pressure is normal. RVSP is 17 to 22 mm of Hg , with RA mean of 5 to 10. Pulmonic Valve There is no pulmonic valvular stenosis. There is a trace amount of pulmonic regurgitation. Great Vessels The aortic root is normal size. The inferior vena cava appeared normal and decreased > 50% with respiration (RAP 5-10 mmHg). Effusions There is no pericardial effusion. : RUBEN LEMONS > Justine Feng
[2018-07-12] MEDS ORDERED: FONDAPARINUX SODIUM INJ 2.5 MG/0.5 ML DISP.SYRIN SUBCUT SCH (10:00)
== END 2018-07-11 20:30 | disposition short-term general hospital (02) | DRG 872 ==
LOC: ER 14:02 → EH 18:36 → 2N 20:20
PROVIDERS: ADMIT Internal Medicine; ATTEND Internal Medicine
DX: A41.9 Sepsis, unspecified organism (principal); N17.9 Acute kidney failure, unspecified; N39.0 Urinary tract infection, site not specified; N41.0 Acute prostatitis; N41.2 Abscess of prostate; I10 Essential (primary) hypertension; E86.0 Dehydration; R11.2 Nausea with vomiting, unspecified; M54.5 Low back pain; B95.62 Methicillin resistant Staphylococcus aureus infection as the cause of diseases classified elsewhere
CPT/HCPCS: 36415; 71046; 74160; 80048; 80053; 80076; 80202; 80307; 81001; 82550; 82803; 82962; 83605; 85025; 85027; 85610; 86592; 86701; 87040; 87077; 87086; 87088; 87186; 87491; 87591; 87804; 93005; 93010; 93306; 96361; 96374; 96375; 99285; J0692; J1650; J1885; J2270; J2550; J3370; J3490; J7030; J7060; J7120

== ENCOUNTER 2018-08-30 23:22 | Emergency (ER) | payer BC ==
[2018-08-30] MEDS ORDERED: ONDANSETRON HCL INJ/PF 4 MG/2 ML SDV IV ONE (23:54)
[2018-08-30] MEDS ORDERED: ONDANSETRON HCL INJ/PF 4 MG/2 ML SDV ONE (23:56)
[2018-08-31 00:09] LABS: ABSOLUTE LYMPHOCYTES (AUTO) 1.6 10^3/uL (0.5-4.7); ABSOLUTE MONOCYTES (AUTO) 0.6 10^3/uL (0.1-1.4); ABSOLUTE NEUT (AUTO) 7.6 10^3/uL (1.7-8.2); BASOPHILS % (AUTO) 0.4 % (0-2); EOSINOPHILS % (AUTO) 0.4 % (0-6); HEMATOCRIT 40.8 % (37.9-51.0); HEMOGLOBIN 13.8 g/dL (13.5-17.0); LYMPHOCYTES % (AUTO) 16.3 % (13-45); MEAN CORPUSCULAR HEMOGLOBIN 27.3 pg (27.0-33.4); MEAN CORPUSCULAR HGB CONC 33.7 g/dL (32.0-36.0); MEAN CORPUSCULAR VOLUME 81 fl (80-97); MONOCYTES % (AUTO) 6.4 % (3-13); PLATELET COUNT 287 10^3/uL (150-450); RED BLOOD COUNT 5.04 10^6/uL (4.35-5.55); RED CELL DISTRIBUTION WIDTH 13.1 % (11.5-14.0); SEGMENTED NEUTROPHILS % (AUTO) 76.5 % (42-78); TOTAL CELLS COUNTED % (AUTO) 100 %
[2018-08-31] MEDS ORDERED: KETOROLAC TROMETHAMINE INJ/PF 30 MG/1 ML SDV IV ONE (00:15)
[2018-08-31] MEDS ORDERED: KETOROLAC TROMETHAMINE INJ/PF 30 MG/1 ML SDV ONE (00:16)
--- NOTE | 2018-08-31 01:05 | ER Document Report ---
ED General - General Chief Complaint: Abdominal Pain Stated Complaint: ABDOMINAL PAIN Time Seen by Provider: 08/31/18 00:47 Primary Care Provider: HENRY RAJPUT MD [Primary Care Provider] - Follow up as needed Mode of Arrival: Ambulatory Information source: Patient, Relative, [facility] Records Notes: 32-year-old male with hypertension, recent history of prostate abscess requiring IR drainage in 1 month of antibiotics via [facility] presents with right mid abdominal pain that started just prior to arrival. Patient describes the pain as sharp, cramping and associated with multiple episodes of nausea, vomiting and one episode of nonbloody diarrhea. Patient denies any fever, chills, headache, chest pain, shortness of breath, dysuria, hematuria, back pain. Patient was admitted in June 2018 where he was found to be septic and later transferred to [facility]. Patient reports repeat CAT scan since his discharge from [facility] as well as repeat blood work which she reports was normal. TRAVEL OUTSIDE OF THE [place] IN LAST 30 DAYS: No - HPI Onset: Just prior to arrival Onset/Duration: Sudden Quality of pain: Cramping, Stabbing Severity: Mild Pain Level: 1 Associated symptoms: Diarrhea, Nausea, Vomiting, Other - Abdominal pain Exacerbated by: Denies Relieved by: Denies Similar symptoms previously: No Recently seen / treated by doctor: Yes - Related Data Allergies/Adverse Reactions: No Known Allergies Allergy (Verified 07/06/18 14:08) Past Medical History - General Information source: Patient, Relative, [facility] Records - Social History Smoking Status: Never Smoker Chew tobacco use (# tins/day): No Frequency of alcohol use: Rare Drug Abuse: None Lives with: Spouse/Significant other Family History: Reviewed & Not Pertinent Patient has suicidal ideation: No Patient has homicidal ideation: No - Past Medical History Cardiac Medical History: Reports: Hx Hypertension Renal/ Medical History: Reports: Hx Kidney Stones. Denies: Hx Peritoneal Dialysis Past Surgical History: Reports: Hx Genitourinary Surgery - vasectomy Review of Systems - Review of Systems Notes: REVIEW OF SYSTEMS: CONSTITUTIONAL : Denies fever, chills, or sweats. Denies recent illness. Denies weight loss, recent hospitalizations. EENT: Denies visual changes, eye pain. Denies sore throat, oral lesions, difficulty swallowing. CARDIOVASCULAR: Denies chest pain. Denies palpitations. Denies lower extremity edema. RESPIRATORY: Denies cough. Denies shortness of breath, wheezing. GASTROINTESTINAL: Denies abdominal distention. + nausea, vomiting, and diarrhea. Denies blood in vomitus, stools, or per rectum. Denies black, tarry stools. Denies constipation. GENITOURINARY: Denies difficulty urinating, painful urination, frequency, blood in urine, testicular pain or penile discharge. MUSCULOSKELETAL: Denies back or neck pain or stiffness. Denies joint pain or swelling. SKIN: Denies rash, lesions or sores. HEMATOLOGIC : Denies easy bruising or bleeding. LYMPHATIC: Denies swollen glands. NEUROLOGICAL: Denies confusion or altered mental status. Denies loss of consciousness. Denies dizziness or lightheadedness. Denies headache. Denies weakness or paralysis. Denies problems difficulty with ambulation, slurred speech. Denies sensory loss, numbness, or tingling. Denies seizures. PSYCHIATRIC: Denies anxiety or stress. Denies depression, suicidal ideation, or Physical Exam - Vital signs Vitals: Temp Pulse Resp BP Pulse Ox 98.1 F 81 24 H 122/74 100 08/30/18 23:34 08/30/18 23:34 08/30/18 23:34 08/30/18 23:34 08/30/18 23:34 - Notes Notes: PHYSICAL EXAMINATION: GENERAL: Well-appearing, well-nourished and in no acute distress. HEAD: Atraumatic, normocephalic. EYES: Pupils equal round and reactive to light, extraocular movements intact, sclera anicteric, conjunctiva are normal. ENT: Nares patent, oropharynx clear without exudates. Moist mucous membranes. NECK: Normal range of motion, supple without lymphadenopathy LUNGS: Breath sounds clear to auscultation bilaterally and equal. No wheezes rales or rhonchi. HEART: Regular rate and rhythm without murmurs ABDOMEN: Soft, nontender, nondistended abdomen. No guarding, no rebound. No masses appreciated. Musculoskeletal: Normal range of motion, no pitting or edema. No cyanosis. NEUROLOGICAL: Cranial nerves grossly intact. Normal speech, normal gait. Normal sensory, motor exams PSYCH: Normal mood, normal affect. SKIN: Warm, Dry, normal turgor, no rashes or lesions noted. Course - Re-evaluation Re-evalutation: 08/31/18 02:45 Laboratory 08/30/18 08/30/18 23:47 23:47 WBC 10.0 RBC 5.04 Hgb 13.8 Hct 40.8 MCV 81 MCH 27.3 MCHC 33.7 RDW 13.1 Plt Count 287 Seg Neutrophils % 76.5 Lymphocytes % 16.3 Monocytes % 6.4 Eosinophils % 0.4 Basophils % 0.4 Absolute Neutrophils 7.6 Absolute Lymphocytes 1.6 Absolute Monocytes 0.6 Absolute Eosinophils 0.0 Absolute Basophils 0.0 Sodium 143.0 Potassium 3.9 Chloride 99 Carbon Dioxide 31 H Anion Gap 13 BUN 16 Creatinine 1.51 H Est GFR ( Amer) > 60 Est GFR (Non-Af Amer) 53 L Glucose 142 H Calcium 9.9 Total Bilirubin 0.5 Direct Bilirubin 0.3 Neonat Total Bilirubin Not Reportable Neonat Direct Bilirubin Not Reportable Neonat Indirect Bili Not Reportable AST 39 ALT 41 Alkaline Phosphatase 77 Total Protein 8.8 H Albumin 4.5 Lipase 56.5 Abdomen/Pelvis CT 08/31/18 01:00 IMPRESSION: 3 mm stone within the distal right ureter causing mild hydroureter and hydronephrosis. Additional stones within the right kidney measuring up to 3 mm in size. Mild amount of right perinephric stranding and fluid, which may be due to a ruptured calyx. Nonobstructing left-sided nephrolithiasis. Normal appendix. TECHNICAL DOCUMENTATION: Quality ID # 436: Final reports with documentation of one or more dose reduction techniques (e.g., Automated exposure control, adjustment of the mA and/or kV according to patient size, use of iterative reconstruction technique) copyright 2011 [email or web address]- All Rights Reserved Abdomen Ultrasound 08/31/18 01:01 IMPRESSION: No evidence of cholelithiasis or acute cholecystitis. copyright 2010 [email or web address]- All Rights Reserved Temp Pulse Resp BP Pulse Ox 98.1 F 81 24 H 122/74 100 08/30/18 23:34 08/30/18 23:34 08/30/18 23:34 08/30/18 23:34 08/30/18 23:34 08/31/18 03:13 [facility] contacted for transfer. 08/31/18 03:33 Awaiting urology consult. 08/31/18 03:[address] Bower urology on-call who is familiar with the patient. Discussed CT findings of perinephric stranding and perinephric fluid. He states that this does not require transfer or immediate intervention. Recommends pain control and follow-up in 7 days. 08/31/18 03:41 Presents with findings consistent with acute nephrolithiasis. Urinalysis does show hematuria. Laboratory otherwise unremarkable. Pain was able to be controlled here in the emergency department. Patient is tolerating oral intake. Clinical history is not consistent with an acute abdominal aneurysm or dissection, ND, or pulmonary embolus. Urinalysis does not show findings consistent with an infected stone. Vitals have remained within normal limits. Patient will be discharged with recommendations to follow-up with urology, pain medications, and return precautions. They are in agreement with this plan and verbalized indications return to emergency department. - Vital Signs Vital signs: Temp Pulse Resp BP Pulse Ox 98.6 F 81 14 114/50 L 97 08/31/18 04:00 08/30/18 23:34 08/31/18 04:01 08/31/18 04:01 08/31/18 04:01 - Laboratory Result Diagrams: 08/30/18 23:47 08/30/18 23:47 Laboratory results interpreted by me: 08/30/18 08/31/18 23:47 02:37 Carbon Dioxide 31 H Creatinine 1.51 H Est GFR (Non-Af Amer) 53 L Glucose 142 H Total Protein 8.8 H Urine Blood LARGE H - Diagnostic Test Radiology reviewed: Image reviewed, Reports reviewed Discharge - Discharge Clinical Impression: FABIOLA (acute kidney injury) Urolithiasis Qualifiers: Urinary calculus location: lower urinary tract Qualified Code(s): N21.9 - Calculus of lower urinary tract, unspecified Hematuria Qualifiers: Hematuria type: unspecified type Qualified Code(s): R31.9 - Hematuria, unspecified Condition: Good Disposition: HOME, SELF-CARE Instructions: Kidney Injury ([facility]), Kidney Stone ([facility]) Additional Instructions: Your symptoms should improve over the course of the next one week. If you continue to have pain for greater than one week or your pain is not controlled with the pain medications that you have been sent home with you need to return to the emergency department. Please also return if you develop fever, persistent vomiting, or any other symptoms that are concerning to you. You should take ibuprofen 600 mg every 6 hours and use the oral morphine as pr escribed only for pain not controlled by ibuprofen. You are also been sent home with a medication called Flomax to help pass the stone. You've been given Zofran to assist with nausea. Please follow-up with urology in the next 2-3 days. Prescriptions: RX: Cephalexin Monohydrate [Keflex 500 mg Capsule] 500 mg PO BID 7 Days #14 capsule Ibuprofen [Motrin 600 Mg Tablet] 600 mg PO TID #15 tablet Morphine Sulfate [Morphine Ir 15 Mg Tablet] 15 mg PO Q6H #12 tablet Ondansetron [Zofran Odt 4 mg Tablet] 1 - 2 tab PO Q4H PRN #15 tab.rapdis PRN Reason: For Nausea/Vomiting Tamsulosin HCl [Flomax 0.4 mg Cap.sr] 0.4 mg PO DAILY #7 cap.sr.24h Forms: Elevated Blood Pressure, Return to Work Referrals: HENRY RAJPUT MD [Primary Care Provider] - Follow up as needed
[2018-08-31 01:13] LABS: ALANINE AMINOTRANSFERASE 41 U/L (21-72); ALBUMIN 4.5 g/dL (3.5-5.0); ALKALINE PHOSPHATASE 77 U/L (38-126); ANION GAP 13 (5-19); ASPARTATE AMINO TRANSFERASE 39 U/L (17-59); BILIRUBIN,DIRECT 0.3 mg/dL (0.0-0.4); BILIRUBIN,TOTAL 0.5 mg/dL (0.2-1.3); BLOOD UREA NITROGEN 16 mg/dL (7-20); CALCIUM 9.9 mg/dL (8.4-10.2); CARBON DIOXIDE 31 mmol/L (22-30); CHLORIDE 99 mmol/L (98-107); GLUCOSE 142 mg/dL (75-110); LIPASE 56.5 U/L (23-300); POTASSIUM 3.9 mmol/L (3.6-5.0); TOTAL PROTEIN 8.8 g/dL (6.3-8.2)
--- NOTE | 2018-08-31 01:53 | RADIOLOGY REPORT (SQ) ---
EXAM DESCRIPTION: US ABDOMEN LIMITED COMPLETED DATE/TME: 08/31/2018 01:01 CLINICAL HISTORY: 32 years, Male, pain COMPARISON: None. TECHNIQUE: Grayscale and color images of the abdomen LIMITATIONS: None. FINDINGS: The visualized portions of the pancreas, IVC, and abdominal aorta appear unremarkable. The liver is normal in size, shape, and echotexture. The liver measures 15.1 cm. The main portal vein is patent and demonstrates normal hepatopedal flow. No shadowing stones, wall thickening, or pericholecystic fluid is identified. No sonographic Marcial sign was elicited. There is a possible gallbladder polyp along the nondependent portion of the gallbladder wall (image 37). The common bile duct is normal in caliber measuring up to 5 mm. The right kidney measures approximately 10.9 x 4.9 x 6.8 cm. No hydronephrosis. IMPRESSION: No evidence of cholelithiasis or acute cholecystitis. copyright 2010 [employer]- All Rights Reserved
[2018-08-31] MEDS ORDERED: NORMAL SALINE 1000 ML 1,000 ML IV ONE (02:14)
--- NOTE | 2018-08-31 02:18 | RADIOLOGY REPORT (SQ) ---
EXAM DESCRIPTION: CT ABDOMEN PELVIS WITH IV CONTRAST COMPLETED DATE/TME: 08/31/2018 01:00 CLINICAL HISTORY: 32 years, Male, rlq abd pain COMPARISON: None. TECHNIQUE: Axial CT images of the abdomen and pelvis were obtained after the administration of IV contrast. Sagittal and coronal reformats were performed. [facility] 1564 Images stored on PACS. All CT scanners at this facility use dose modulation, iterative reconstruction, and/or weight based dosing when appropriate to reduce radiation dose to as low as reasonably achievable (ALARA). [facility]: Dose Right [facility]: CareDose [facility]: Dose Right [facility]: Teradose 4D [facility]: [employer] LIMITATIONS: None. FINDINGS: The lung bases are clear. The liver, gallbladder, pancreas, spleen, and adrenal glands are unremarkable. There is a 3 mm stone within the distal right ureter causing mild hydroureter and hydronephrosis. There are additional stones within the right kidney measuring up to 3 mm in size. There is a mild amount of right perinephric stranding and fluid. The left kidney has a 2 mm nonobstructing stone. There is no intraperitoneal free air or fluid. There is no lymphadenopathy. The abdominal aorta is normal in caliber. The stomach small bowel and appendix are normal. The colon contains a moderate amount of stool. The urinary bladder and prostate gland are unremarkable. There are no lytic or blastic bone lesions IMPRESSION: 3 mm stone within the distal right ureter causing mild hydroureter and hydronephrosis. Additional stones within the right kidney measuring up to 3 mm in size. Mild amount of right perinephric stranding and fluid, which may be due to a ruptured calyx. Nonobstructing left-sided nephrolithiasis. Normal appendix. TECHNICAL DOCUMENTATION: Quality ID # 436: Final reports with documentation of one or more dose reduction techniques (e.g., Automated exposure control, adjustment of the mA and/or kV according to patient size, use of iterative reconstruction technique) copyright 2011 [employer]- All Rights Reserved
[2018-08-31 02:56] LABS: APPEARANCE,URINE CLEAR; BILIRUBIN,URINE NEGATIVE (NEGATIVE); COLOR,URINE YELLOW; GLUCOSE, URINE NEGATIVE (NEGATIVE); KETONES,URINE NEGATIVE (NEGATIVE); LEUKOCYTE ESTERASE,URINE NEGATIVE (NEGATIVE); NITRITE,URINE NEGATIVE (NEGATIVE); PROTEIN,URINE NEGATIVE (NEGATIVE); URINE SPECIFIC GRAVITY 1.026; UROBILINOGEN,URINE NEGATIVE mg/dL (<2.0)
[2018-08-31] MEDS ORDERED: CEFTRIAXONE 1 GM/D5W RTU 1 GM/50 ML RTUPB IV ONE (03:00)
[2018-08-31] MEDS ORDERED: ONDANSETRON HCL INJ/PF 4 MG/2 ML SDV IV ONE (03:04)
[2018-08-31] MEDS ORDERED: MORPHINE SULFATE 10 MG/ML INJ IV ONE (03:04)
[2018-08-31] MEDS ORDERED: TAMSULOSIN HCL 0.4 MG CAP.SR.24H PO ONE (03:32)
[2018-08-31] MEDS ORDERED: FENTANYL CITRATE INJ/PF 100 MCG/2 ML AMPUL IV ONE (03:39)
[2018-08-31] MEDS ORDERED: ONDANSETRON ODT 4 MG TAB (6 TAB/ER DISP) PO PRN (03:42)
[2018-08-31 04:15] VITALS: BP 114/50
== END 2018-08-31 04:19 | disposition home or self-care (01) ==
LOC: ER 23:22
DX: N17.9 Acute kidney failure, unspecified (principal); N21.9 Calculus of lower urinary tract, unspecified; R31.9 Hematuria, unspecified; R10.9 Unspecified abdominal pain; R19.7 Diarrhea, unspecified; R11.2 Nausea with vomiting, unspecified; I10 Essential (primary) hypertension; Z87.442 Personal history of urinary calculi
CPT/HCPCS: 96361; 99284; 96375; 96365; 36415; 83690; 85025; 80053; 81001; 76705; 74177; J3010; J1885; J2270; J2405; J7030; J0696